=== PATIENT | female | born 1985 | race Caucasian/White ===

== ENCOUNTER 2019-06-16 14:50 | Outpatient (CLI) | payer OTHER, SELFPAY ==
--- NOTE | ~2019-06-16 | XR_ITS ---
XR foot LT min 3V 06/16/2019 15:08 INDICATION: Left foot pain laterally for one week PROCEDURE: 4 views left foot COMPARISON: No prior studies for comparison. FINDINGS: Fracture, dislocation or subluxation is not identified. Lisfranc joint intact. The soft tis sues appear within normal limits. No foreign bodies are identified. IMPRESSION: 1: NO ACUTE BONE OR JOINT ABNORMALITY IDENTIFIED. Reviewed, dictated and finalized at location A. 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
== END 2019-06-16 14:51 | disposition home or self-care (01) ==
LOC: ANHIMG 14:55
PROVIDERS: PCP Registered Nurse; Visit Provider Registered Nurse
DX: M79.672 Pain in left foot (principal)
CPT/HCPCS: 73630

== ENCOUNTER 2019-07-10 00:44 | Day surgery (SDC) | payer OTHER, SELFPAY ==
[2019-07-04 15:05] VITALS: BMI 20.7
[2019-07-10 07:29] VITALS: BP 110/74; PULSE 63; RESP 14; TEMP 36.6; O2SAT 100
[2019-07-10] MEDS: LACTATED RINGERS 1,000 ML 150 ML IV CONT (07:34)
--- NOTE | 2019-07-10 08:06 | P.PNAN_ITS ---
Anes - Initial Pre Proc Eval Procedure: Operation Date: 07/10/19 08:30 Proposed Procedures p Esophagogastroduodenoscopy - Enrique Matias MD Date/Time: 07/10/19 08:06 Surgeon: Enrique Matias MD Pre Op Diagnosis: GERD Patient Data Age: 33 Gender: F Height: 5 ft 7 in Weight: 59.5 kg Last Vital Signs Temp 36.6 C 07/10/19 07:29 Pulse 63 07/10/19 07:29 Resp 14 07/10/19 07:29 BP 110/74 07/10/19 07:29 Pulse Ox 100 07/10/19 07:29 Allergies Allergy/AdvReac Type Severity Reaction Status Date / Time No Known Allergies Allergy Verified 07/10/19 07:24 Home Medications Medication Instructions Recorded Confirmed Type dextroamphetamine-amphetamine 10 mg PO DAILY 07/04/19 07/10/19 History omeprazole 20 mg PO DAILY 07/04/19 07/10/19 History sertraline 50 mg DAILY 07/04/19 07/10/19 History Patient hx anesthesia problems: none Family hx anesthesia problems: none [facility] Past Medical History Medical History Anxiety PTSD (post-traumatic stress disorder) Anes - Eval Final PreProcedure Day of Procedure 07/10/19 08:06 Patient weight: normal Heart: regular rate and rhythm Lungs: clear to auscultation Airway: Mallampati scale class 1 Neurological: alert and oriented Last oral intake: >/= 8 hours ASA classification: II Emergent: no Anesthetic plan: proceed Anesthesia type and monitoring: general GIVS and standard monitoring Informed Consent: The patient's anesthetic plan and its attendant risks and benefits were discussed with the patient/family/POA. Questions were solicited and answers provided to the satisfaction of the patient/family/POA.
[2019-07-10 08:50] VITALS: BP 102/68; PULSE 47; RESP 14; O2SAT 100
[2019-07-10 09:00] VITALS: BP 114/82; PULSE 45; RESP 16; O2SAT 100
[2019-07-10 09:10] VITALS: BP 106/72; PULSE 46; RESP 16; O2SAT 100
--- NOTE | 2019-07-13 14:26 | WPDGICN ---
Assessment and Plan Additional Plan This is a 33-year-old white female patient seen in evaluation at the request of nurse practitioner Patricia Bose. Patient complains a long-term history of heartburn. In acid reflux. She notices reflux and regurgitation typically in the evening on reclining. This will typically occurs shortly after reclining in the evening at bedtime. Patient often will notice symptoms in the morning as well. She denies any bleeding. She denies any difficulty swallowing. She has tried proton pump inhibitors briefly over the last 2 months with some improvement in symptoms. She denies any weight loss. Past medical history is significant for depression. Anxiety. PTSD. Current medications include omeprazole, sertraline, Adderall, NKDA Physical exam reveals her to be alert. Vital signs stable. HEENT exam unremarkable. Lungs are clear to auscultation and percussion. Heart is without murmur or extra sounds. Abdominal exam bowel sounds are present soft nontender with no organomegaly. Digital external rectal exam unremarkable. Impression 1. Chronic GE reflux disease. Nocturnal regurgitation appears to be primary symptom associated with heartburn. Plan is for anti-reflux measures. Elevating head of bed at night. No late snacks. Proton pump inhibitor is advised now on likely to be required long-term. Because of long-term symptoms an EGD will be required. Further recommendations may be given after endoscopy. Date of original consultation 06/27/2019. GI Consult Note Consult date/time: 07/13/19 14:26 HPI: Marielena Dennison is a 33 year old female [facility] Past Medical History Medical History Anxiety PTSD (post-traumatic stress disorder) Meds Home Medications and Allergies Home Medications Medication Instructions Recorded Confirmed Type dextroamphetamine-amphetamine 10 mg PO DAILY 07/04/19 07/10/19 History omeprazole 20 mg PO DAILY 07/04/19 07/10/19 History sertraline 50 mg DAILY 07/04/19 07/10/19 History Allergies Allergy/AdvReac Type Severity Reaction Status Date / Time No Known Allergies Allergy Verified 07/10/19 07:24
== END 2019-07-10 09:35 | disposition home or self-care (01) ==
PROVIDERS: PCP Registered Nurse; Visit Provider Internal Medicine Gastroenterology
PROC: 0DJ08ZZ Inspection of Upper Intestinal Tract, Via Natural or Artificial Opening Endoscopic (ICD-10-PCS; CPT 43235; principal; 2019-07-10 08:30)
DX: K21.9 Gastro-esophageal reflux disease without esophagitis (principal); R11.10 Vomiting, unspecified; F43.10 Post-traumatic stress disorder, unspecified; F41.8 Other specified anxiety disorders
CPT/HCPCS: 43239; 87081; J2704; J7120

== ENCOUNTER 2019-08-18 09:16 | Outpatient (CLI) | payer OTHER, SELFPAY ==
[2019-08-18 09:34] LABS: Basophils Percent Auto 0.3 % (0.2-1.2); Eosinophils Percent Auto 0.1 % (0-4.4); Hematocrit 37.7 % (37.0-47.0); Hemoglobin 12.4 g/dL (12.0-15.0); Immature Granulocyte Absolute 0.02 K/mm3 (0.00-0.031); Immature Granulocyte Percent A 0.3 % (0-0.5); Lymphocytes Absolute Auto 1.15 K/mm3 (0.9-3.2); Lymphocytes Percent Auto 15.1 % (18.3-44.2); Mean Corpuscular HGB Conc 32.9 g/dl (32-36); Mean Corpuscular Hemoglobin 31.4 pg (26-34); Mean Corpuscular Volume 95.4 fl (80-100); Mean Platelet Volume 12.9 fl (7.4-10.4); Monocytes Absolute Auto 0.5 K/mm3 (0.1-0.6); Monocytes Percent Auto 6.5 % (2.6-8.5); Neutrophils Absolute Auto 5.9 K/mm3 (1.3-6.7); Neutrophils Percent Auto 77.7 % (45.5-73.1); Platelet Count Result 116 k/mm3 (150-375); Red Blood Count 3.95 M/mm3 (4.2-5.4); Red Cell Distribution Width 12.1 % (11.5-14.5); White Blood Count 7.6 K/mm3 (4.5-10.0)
[2019-08-18 09:47] LABS: Alanine Aminotransferase 13 U/L (4-35); Albumin Level 4.3 g/dL (3.5-5.1); Alkaline Phosphatase 56 U/L (38-126); Aspartate Amino Transferase 20 U/L (14-36); Bilirubin,Total 1.4 mg/dL (0.2-1.3); Blood Urea Nitrogen 14 mg/dL (7-17); Calcium 8.7 mg/dL (8.4-10.2); Carbon Dioxide 25 mmol/L (22-30); Chloride 103 mmol/L (98-107); Estimated Glomerular Filt Rate > 60; Glucose 110 mg/dL (65-105); Potassium 4.1 mmol/L (3.4-5.0); Sodium 135 mmol/L (137-145)
[2019-08-18 10:31] LABS: Free T4 Free Thyroxine 0.87 ng/mL (0.78-2.19)
== END 2019-08-18 09:17 | disposition home or self-care (01) ==
PROVIDERS: PCP Registered Nurse; Visit Provider Registered Nurse
DX: R61 Generalized hyperhidrosis (principal)
CPT/HCPCS: 36415; 80053; 84439; 84443; 85025

== ENCOUNTER 2020-01-11 06:35 | Outpatient (CLI) | payer OTHER, SELFPAY ==
--- NOTE | ~2020-01-11 | MR_ITS ---
EXAMINATION: MR knee LT wo con DATE: 01/11/2020 07:39 INDICATION: Medial meniscal tear. Left knee pain. TECHNIQUE: Magnetic resonance imaging (MRI) of the left knee was performed without intravenous contra st. Sequences included coronal PD-weighted FSE, coronal PD-weighted FS FSE, sagittal T2-weighted FSE , sagittal PD-weighted FS FSE and axial PD weighted fat saturated FSE. COMPARISON: None. FINDINGS: Medial compartment: Medial meniscus is normal. Articular cartilage is normal. Lateral compartment: Lateral meniscus is normal. There is a partial-thickness chondral fissure along the posterior margin of the lateral tibial plateau underlying the peripheral third of the posterior horn of the lateral me niscus. Patellofemoral compartment: Mild chondral surface irregularity along the inferior half of the patellar apical ridge. Chondral swe lling and likely associated superficial fibrillation with poorly defined chondral surface at the medi al facet. Mild chondral fissuring at the inferomedial aspect of the medial trochlea. Ligaments and tendons: Anterior and posterior cruciate ligaments are normal. The medial collateral ligament and fibular beatrice ateral ligament complex are normal. The extensor mechanism is normal. The visualized medial and later al hamstring tendons as well as the iliotibial band are normal. Fluid: Physiologic amount of fluid in the joint space. No loose osteochondral bodies identified. Moderate-si zed Bragg's cyst. There is also small to moderate amount of fluid tracking inferiorly along the popli teal recess. Osseous/other: Normal marrow signal. No fracture or abnormal marrow replacing process. IMPRESSION: 1. Relatively preserved cartilage thickness but with small regions of chondral fissuring in the webster lofemoral compartment and along the posterior rim of the lateral tibial plateau. 2. Normal menisci and stabilizing ligaments. 3. Moderate-sized Bragg's cyst. Reviewed, dictated and finalized at location A. IMPRESSION: 1. Relatively preserved cartilage thickness but with small regions of chondral fissuring in the patellofemoral compartment and along the posterior rim of the lateral tibial plateau. 2. Normal menisci and stabilizing ligaments. 3. Moderate-sized Bragg's cyst.
== END 2020-01-11 06:36 | disposition home or self-care (01) ==
PROVIDERS: PCP Registered Nurse; Visit Provider Orthopaedic Surgery
DX: S83.242A Other tear of medial meniscus, current injury, left knee, initial encounter (principal); M71.22 Synovial cyst of popliteal space [Baker], left knee
CPT/HCPCS: 73721

== ENCOUNTER 2020-02-15 18:07 | Emergency (ER) | payer OTHER, SELFPAY ==
--- NOTE | ~2020-02-15 | CT_ITS ---
EXAMINATION: CTA brain carotid EXAM DATE: 02/15/2020 19:42 INDICATION: Headache. TECHNIQUE: Noncontrast head CT. Spiral CTA of the carotid arteries was performed with intravenous i njection 100 cc of Omnipaque 350. Axial, coronal, sagittal reformatted images reviewed. Additional r eformatted images created on dedicated 3-D workstation. NASCET comparable standard used to assess th e degree of arterial stenosis. Spiral CT angiogram cerebral arteries performed with the same intrave nous injection of contrast. Source images of the brain CTA transferred to dedicated workstation for 3 -D rotational image creation. Coronal, sagittal maximum intensity pixel images also reviewed. The d ose-length product (DLP) for this examination was 1890.58 mGy-cm. The exposure was tailored accordi ng to patient size, and iterative reconstruction (ASIR) was used as additional dose reduction techniq ue. There is no prior study for comparison. FINDINGS: There is 0% carotid stenosis bilaterally, no focal plaque. The left vertebral artery is dom inant. There is no carotid or vertebral basilar arterial dissection or fibromuscular dysplasia. Ther e are no cerebral artery aneurysms. There is symmetric cerebral artery arborization. The sagittal, tr ansverse and sigmoid sinuses enhance normally, no venous sinus thrombosis. Internal cerebral veins al so enhance normally. There is left-sided posterior communicating artery dominant posterior cerebral artery. There is no acute intraparenchymal hemorrhage. No evidence of intraparenchymal brain mass lesion. N o evidence of acute infarction. There is no mass effect or midline shift. There is no obstructive hyd rocephalus suspected. There are no extra-axial collections. There are no calvarial acute fractures. IMPRESSION: Normal carotid arteries. Normal exam. Reviewed, dictated and finalized at location A.
[2020-02-15 18:11] VITALS: BP 138/89; PULSE 58; RESP 16; TEMP 36.4; O2SAT 100
--- NOTE | 2020-02-15 18:12 | ED.GENADULT ---
HPI - General Adult General Chief complaint: Headache Stated complaint: HEADACHE Time Seen by Provider: 02/15/20 18:10 Source: patient Mode of arrival: ambulatory Limitations: no limitations History of Present Illness HPI narrative: Patient is a 34-year-old female who presents to emergency department for evaluation of left posterior ocular temporal headache has been present for 4 days denies other symptoms or complaints has tried [id number] medications with no improvement patient does note light noise sensitivity patient denies any fever chills nausea vomiting or other complaints and on arrival is in the room in no distress but appears uncomfortable Related Data Home Medications Medication Instructions Recorded Confirmed dextroamphetamine-amphetamine 10 mg PO DAILY 07/04/19 07/10/19 omeprazole 20 mg PO DAILY 07/04/19 07/10/19 sertraline 50 mg DAILY 07/04/19 07/10/19 Allergies Allergy/AdvReac Type Severity Reaction Status Date / Time No Known Allergies Allergy Verified 02/15/20 18:11 Review of Systems Review of Systems: All systems reviewed & are unremarkable except as noted in HPI and below PMFSH Past Medical History Medical History (Updated 02/15/20 @ 20:02 by Magdaleno Hernández PA-C) Acute medial meniscus tear of left knee Anxiety Chondromalacia of left patellofemoral joint Depression GERD (gastroesophageal reflux disease) Peroneal tendinitis of left lower leg PTSD (post-traumatic stress disorder) Seasonal allergies Surgical History Surgical History History of breast surgery Family History Family History Other Arthritis Cancer Diabetes mellitus Heart disease Social History Social History Smoking status: Never smoker Alcohol intake: current Drinks per week: 7 Substance use: unknown 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 HEAD: Normocephalic, atraumatic. EYES: PERRLA and EOMI. ENT: Nares clear, no rhinorrhea or epistaxis. Mucous membranes moist. CHEST: Clear to auscultation. No respiratory distress. No wheezes rales or rhonchi HEART: Regular rate and rhythm. No murmur heard. Normal peripheral pulses. ABDOMEN: Soft, nontender, nondistended EXTREMITIES: Normal range of motion. No edema. SKIN: Warm, dry, no rash. NEURO: No focal deficits. Alert and oriented x3. Normal speech and gait. Cranial nerves II through XII grossly intact PSYCH: Normal mood and affect. Course Course Emergency Course: Patient in the room with improvement Vital Signs Vital signs: Vital Signs Temperature 97.6 F 02/15/20 18:11 Pulse Rate 58 L 02/15/20 18:11 Respiratory Rate 16 02/15/20 18:11 Blood Pressure 138/89 02/15/20 18:11 Pulse Oximetry 100 02/15/20 18:11 Temperature 97.6 F 02/15/20 18:11 Pulse Rate 58 L 02/15/20 18:11 Respiratory Rate 16 02/15/20 18:11 Blood Pressure 138/89 02/15/20 18:11 Pulse Oximetry 100 02/15/20 18:11 Medical Decision Making MDM Narrative Medical decision making narrative: Patients headache was not sudden or maximal in onset. There are o focal neurological deficits on exam. Subarachnoid hemorrhage is felt to be unlikey at this time. There is no history of fever, and neck is supple without meningismus, making meningitis unlikely. No traumatic history or signs of trauma on exam. No risk factors for CVA, risk factors reviewed. NO ocular signs on exam and in history to suggest acute glaucoma. Patients headache is felt to be a reasonable candidate for outpatient evaluation Vital Signs Vital Signs: Vital Signs Temperature 97.6 F 02/15/20 18:11 Pulse Rate 58 L 02/15/20 18:11 Resp
[2020-02-15] MEDS: METOCLOPRAMIDE HCL INJ 10 MG/2 ML VIAL IV PUSH (18:17)
[2020-02-15] MEDS: diphenhydrAMINE HCl INJ 50 MG/ML VIAL 25 MG IV PUSH (18:17)
[2020-02-15] MEDS: SODIUM CHLORIDE 0.9% IV 1,000 ML 999 ML IV CONT (18:17)
[2020-02-15] MEDS: FAMOTIDINE 20 MG/2 ML VIAL IV PUSH (18:17)
[2020-02-15] MEDS: KETOROLAC 30 MG/ML VIAL (*BKC) IV PUSH (18:17)
[2020-02-15 19:09] LABS: Basophils Percent Auto 0.3 % (0.2-1.2); Eosinophils Absolute Auto 0.1 K/mm3 (0-0.3); Eosinophils Percent Auto 0.8 % (0-4.4); Hematocrit 38.7 % (37.0-47.0); Hemoglobin 12.6 g/dL (12.0-15.0); Immature Granulocyte Absolute 0.01 K/mm3 (0.00-0.031); Immature Granulocyte Percent A 0.2 % (0-0.5); Lymphocytes Absolute Auto 1.97 K/mm3 (0.9-3.2); Lymphocytes Percent Auto 30.8 % (18.3-44.2); Mean Corpuscular HGB Conc 32.6 g/dl (32-36); Mean Corpuscular Hemoglobin 31.7 pg (26-34); Mean Corpuscular Volume 97.2 fl (80-100); Mean Platelet Volume 12.2 fl (7.4-10.4); Monocytes Absolute Auto 0.5 K/mm3 (0.1-0.6); Neutrophils Absolute Auto 3.9 K/mm3 (1.3-6.7); Neutrophils Percent Auto 60.9 % (45.5-73.1); Platelet Count Result 124 k/mm3 (150-375); Red Blood Count 3.98 M/mm3 (4.2-5.4); Red Cell Distribution Width 12.3 % (11.5-14.5); White Blood Count 6.4 K/mm3 (4.5-10.0)
[2020-02-15 19:21] LABS: Anion Gap 6 mmol/L (8-16); Blood Urea Nitrogen 12 mg/dL (7-17); Calcium 8.8 mg/dL (8.4-10.2); Carbon Dioxide 28 mmol/L (22-30); Chloride 105 mmol/L (98-107); Estimated CRCL calculation 104 ml/min; Estimated Glomerular Filt Rate > 60; Glucose 90 mg/dL (65-105); Potassium 4.1 mmol/L (3.4-5.0); Sodium 139 mmol/L (137-145)
[2020-02-15] MEDS: LORazepam INJ (*CRX) 2 MG/ML VIAL 1 MG IV PUSH (19:22)
== END 2020-02-15 20:12 | disposition home or self-care (01) ==
PROVIDERS: Emergency Medicine Emergency Medical Services; Emergency Provider Emergency Medicine; PCP Registered Nurse
DX: R51.9 Headache, unspecified (principal); F32.9 Major depressive disorder, single episode, unspecified; F41.9 Anxiety disorder, unspecified; K21.9 Gastro-esophageal reflux disease without esophagitis; F43.10 Post-traumatic stress disorder, unspecified
CPT/HCPCS: 36415; 70496; 70498; 80048; 85025; 96361; 96374; 96375; 99284; J0131; J1200; J1885; J2060; J2765; J7030; Q9967

== ENCOUNTER 2020-04-14 09:23 | Outpatient (CLI) | payer OTHER, SELFPAY ==
--- NOTE | ~2020-04-14 | US_ITS ---
EXAMINATION: US knee asp inj w image LT DATE: 04/14/2020 10:31 INDICATION: Synovial cyst of popliteal space. TECHNIQUE: The procedure including the risks was discussed with the patient. Risks discussed included bleeding and infection. The patient understood the risks and agreed to proceed. The skin overlying t he left popliteal space was prepped and draped in usual sterile fashion. Anesthetic was administered with 1% lidocaine subcutaneously. An 18 gauge needle was then used to aspirate a Bragg's cyst under continuous sonographic guidance. Next, 1 mL 80 mg/mL Depo-Medrol was injected under ultrasound tahir nce. The entry site was cleaned and dressed. There were no immediate complications. FINDINGS: Ultrasound images demonstrate the needle in the left-sided Bragg's cyst. IMPRESSION: 1. Ultrasound-guided aspiration of a left-sided Bragg's cyst yielding 3 mL clear, yellow fluid. Ultra sound-guided injection of the Bragg's cyst with steroid. Reviewed, dictated and finalized at location A. 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 Ultrasound-guided aspiration of a left-sided Bragg's cyst yielding 3 mL fabiola r, yellow fluid. Ultrasound-guided injection of the Bragg's cyst with steroid.
== END 2020-04-14 09:24 | disposition home or self-care (01) ==
PROVIDERS: PCP Registered Nurse; Visit Provider Orthopaedic Surgery
DX: M71.22 Synovial cyst of popliteal space [Baker], left knee (principal)
CPT/HCPCS: 20611; J1040

== ENCOUNTER 2020-09-12 07:22 | Outpatient (CLI) | payer OTHER, SELFPAY ==
[2020-09-12 08:02] LABS: Basophils Percent Auto 0.4 % (0.2-1.2); Eosinophils Percent Auto 0.4 % (0-4.4); Hematocrit 38.9 % (37.0-47.0); Hemoglobin 12.6 g/dL (12.0-15.0); Immature Granulocyte Absolute 0.03 K/mm3 (0.00-0.031); Immature Granulocyte Percent A 0.5 % (0-0.5); Lymphocytes Absolute Auto 1.35 K/mm3 (0.9-3.2); Mean Corpuscular HGB Conc 32.4 g/dl (32-36); Mean Corpuscular Hemoglobin 31.4 pg (26-34); Monocytes Absolute Auto 0.5 K/mm3 (0.1-0.6); Monocytes Percent Auto 8.7 % (2.6-8.5); Neutrophils Absolute Auto 3.7 K/mm3 (1.3-6.7); Platelet Count Result 119 k/mm3 (150-375); Red Blood Count 4.01 M/mm3 (4.2-5.4); Red Cell Distribution Width 12.6 % (11.5-14.5); White Blood Count 5.6 K/mm3 (4.5-10.0)
[2020-09-12 08:14] LABS: Add Urine Microscopic? YES; Appearance Urine Clear (Clear); Bacteria Urine Trace /hpf; Bilirubin Urine Negative (Negative); Blood Urine Negative (Negative); Color Urine Yellow (Yellow); Glucose Urine UA Negative (Negative); Ketones Urine Negative (Negative); Leukocyte Esterase Ur Trace LEU/UL (Negative); Mucus Urine Rare /lpf; Nitrate Urine Negative (Negative); Protein Urine Negative (Negative); RBC Urine 0-2 /hpf (0-2); Squamous Epithelial Cell Urine Many /hpf (Few); Urobilinogen Urine Negative mg/dL (<2.0); WBC Urine 0-3 /hpf
[2020-09-12 08:15] LABS: Alanine Aminotransferase 19 U/L (4-35); Albumin Level 4.2 g/dL (3.5-5.1); Alkaline Phosphatase 46 U/L (38-126); Anion Gap 4 mmol/L (8-16); Aspartate Amino Transferase 26 U/L (14-36); Bilirubin,Total 0.8 mg/dL (0.2-1.3); Blood Urea Nitrogen 15 mg/dL (7-17); Calcium 9.1 mg/dL (8.4-10.2); Carbon Dioxide 28 mmol/L (22-30); Chloride 105 mmol/L (98-107); Cholesterol 202 mg/dL (0-200); Estimated Glomerular Filt Rate > 60; Glucose 95 mg/dL (65-105); HDL Direct 89 mg/dL; Potassium 4.1 mmol/L (3.4-5.0); Sodium 137 mmol/L (137-145); Triglycerides 69 mg/dL (<150)
[2020-09-12 08:27] LABS: LDL Cholesterol Direct 95 mg/dL
[2020-09-12 08:51] LABS: Thyroid Stimulating Hormone 0.947 uIU/mL (0.465-4.680)
== END 2020-09-12 07:23 | disposition home or self-care (01) ==
PROVIDERS: PCP Registered Nurse; Visit Provider Registered Nurse
DX: Z00.00 Encounter for general adult medical examination without abnormal findings (principal)
CPT/HCPCS: 36415; 80053; 80061; 81001; 84439; 84443; 85025

== ENCOUNTER 2021-01-01 02:08 | Day surgery (SDC) | payer OTHER, SELFPAY ==
--- NOTE | 2020-12-31 13:16 | PM.IMHP ---
H&P: HPI History of Present Illness Date/Time: 12/31/20 13:16 Chief Complaint: Left knee pain Narrative: 35-year-old with severe anterior left knee pain radiates to the back of the knee. MRI shows medial meniscus tear and inflammatory changes. She has failed previous cortisone injections, physical therapy, bracing and activity modifications. Presents now for operative treatment. Review of Systems Constitutional: Constitutional: Denies fever(s) Eyes: Eyes: Denies blurry vision ENT: Reports Normal hearing present Cardiovascular: Cardiovascular: Denies chest pain and Denies dyspnea Respiratory: Respiratory: Denies dyspnea and Denies wheezing Gastrointestinal: Gastrointestinal: Denies abdominal pain Genitourinary: Genitourinary: Denies urinary urgency Musculoskeletal: Musculoskeletal: Reports as per HPI and Denies numbness Integumentary/Breasts: Skin/Breast: Denies changing lesions and Denies sores Neurologic: Reports Normal hearing present, Denies behavioral changes, Denies confusion, Denies numbness and Denies convulsions Psychiatric: Psychiatric: Denies behavioral changes, Denies confusion and Denies hallucinations Endocrine: Endocrine: Denies heat intolerance Hematologic/Lymphatic: Hematologic/Lymphatic: Denies easy bleeding Allergic/Immunologic: Allergic/Immunologic: Denies wheezing PMFSH Past Medical History Medical History Acute medial meniscus tear of left knee Anxiety Chondromalacia of left patellofemoral joint Depression GERD (gastroesophageal reflux disease) Peroneal tendinitis of left lower leg PTSD (post-traumatic stress disorder) Seasonal allergies Synovial cyst of popliteal space [Bragg], left knee Surgical History Surgical History History of breast surgery Family History Family History Other Arthritis Cancer Diabetes mellitus Heart disease Social History Social History Smoking status: Never smoker Alcohol intake: current Drinks per week: 7 Alcohol use details: 5-7 drinks per week Substance use: unknown 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[employer] Gender identity (if verbalized by the patient): Female Spiritual care concerns: No Meds Home Medications and Allergies Home Medications Medication Instructions Recorded Confirmed Type dextroamphetamine-amphetamine 10 mg PO DAILY 07/04/19 12/25/20 History omeprazole 20 mg PO DAILY 07/04/19 12/25/20 History sertraline 50 mg DAILY 07/04/19 12/25/20 History Allergies Allergy/AdvReac Type Severity Reaction Status Date / Time adhesive tape Allergy Intermediate Rash Verified 12/25/20 14:37 Exam Const: Other: Constitutional General: No confusion Orientation/consciousness: No confusion HENMT Head: normal to inspection, normocephalic and atraumatic Eyes Conjunctivae: Yes conjunctivae normal Sclera: sclerae normal Neck Neck: Yes supple and No tender Chest Chest palpation & inspection: normal inspection of the chest Resp Effort & Inspection: normal respiratory effort and no audible wheezes Cardio Rate: Yes regular rate Rhythm: regular rhythm General Exam: Yes deferred Skin General skin exam: no rashes or lesions noted Neuro General: No confusion Extrem General: Yes capillary refill normal Right upper extremity: normal to inspection Left upper extremity: normal to inspection Right lower extremity: normal to inspection, hip/thigh Details: normal to inspection, ankle Details: Negative for tenderness and swelling and foot Details: normal capillary refill, toes with normal ROM and vascular exam Details: dorsalis pedis pulse present and normal capillary refill Left lower extremity: hip/thigh Details: normal to inspection, knee Details: normal to inspection,
[2021-01-01] VITALS (10 sets, daily range): BP systolic 104–127; BP diastolic 66–86; PULSE 56–76; RESP 7–16; TEMP 36.2–36.5; O2SAT 96–100
[2021-01-01] MEDS: ACETAMINOPHEN 500 MG TABLET 1000 MG PO (07:05)
--- NOTE | 2021-01-01 07:12 | WPDHPUPDATE1 ---
History and Physical Update Update Date/Time: 01/01/21 07:12 History and Physical has been reviewed, including an updated exam of the patient. There are NO changes in the patient's condition. Risks, benefits, and alternatives have been discussed and questions answered. Patient agrees to proceed with procedure.
[2021-01-01] MEDS: LACTATED RINGERS 1,000 ML 30 ML IV CONT ×2 (07:17→09:33)
[2021-01-01] MEDS: KETOROLAC 15 MG/ML VIAL (*BKC) IV PUSH (07:23)
--- NOTE | 2021-01-01 07:35 | WPDANESEPPF ---
Anes - Initial Pre Proc Eval Procedure: Operation Date: 01/01/21 08:30 Proposed Procedures p Left Knee Arthroscopy, Debride Meniscus, Synovectomy, Chondroplasty, Lateral Release, Proceed As Indicated - Benny Ritter MD Date/Time: 01/01/21 07:35 Surgeon: Benny Ritter MD Pre Op Diagnosis: chondromylasia left knee, left synovitis Patient Data Age: 35 Gender: F Height: 1.7 m Weight: 58.5 kg Last Vital Signs Temp 36.5 C 01/01/21 06:42 Pulse 61 01/01/21 06:42 Resp 16 01/01/21 06:42 BP 124/79 01/01/21 06:42 Pulse Ox 100 01/01/21 06:42 Allergies Allergy/AdvReac Type Severity Reaction Status Date / Time adhesive tape Allergy Intermediate Rash Verified 01/01/21 06:57 Home Medications Medication Instructions Recorded Confirmed Type dextroamphetamine-amphetamine 10 mg PO DAILY 07/04/19 01/01/21 History omeprazole 20 mg PO DAILY 07/04/19 01/01/21 History sertraline 50 mg DAILY 07/04/19 01/01/21 History Patient hx anesthesia problems: none Family hx anesthesia problems: none PMFSH Past Medical History Medical History Acute medial meniscus tear of left knee Anxiety Chondromalacia of left patellofemoral joint Depression GERD (gastroesophageal reflux disease) Peroneal tendinitis of left lower leg PTSD (post-traumatic stress disorder) Seasonal allergies Synovial cyst of popliteal space [Bragg], left knee Surgical History Surgical History History of breast surgery Family History Family History Other Arthritis Cancer Diabetes mellitus Heart disease Social History Social History Smoking status: Never smoker Alcohol intake: current Drinks per week: 7 Alcohol use details: 5-7 drinks per week Substance use: unknown Living arrangements: with family 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[employer] Gender identity (if verbalized by the patient): Female Spiritual care concerns: No Anes - Eval Final PreProcedure Day of Procedure 01/01/21 07:35 Patient weight: normal Heart: regular rate and rhythm Lungs: clear to auscultation Airway: Mallampati scale class 1 Neurological: alert and oriented Last oral intake: >/= 8 hours ASA classification: II Emergent: no Anesthetic plan: proceed Anesthesia type and monitoring: general LMA and standard monitoring Informed Consent: The patient's anesthetic plan and its attendant risks and benefits were discussed with the patient/family/POA. Questions were solicited and answers provided to the satisfaction of the patient/family/POA.
[2021-01-01] MEDS: ceFAZolin 2 GM/D5W 50 ML 2 GM/50 ML BAG IVPB (08:23)
[2021-01-01] MEDS: BUPIVACAINE/EPINEPHRINE 0.5% 30 ML VIAL INFILTRATE (09:28)
--- NOTE | 2021-01-01 09:46 | W.PM.PROC2 ---
Procedure Note - Detailed Date of Procedure 01/01/21 Pre-op Diagnosis Chondromalacia patellofemoral left knee, left synovitis, medial meniscus tear Post-op Diagnosis other (Left knee extensive synovitis, hypertrophic medial plica, medial meniscus tear, chondromalacia) Procedure Performed Left knee arthroscopy with extensive synovectomy, partial medial meniscectomy, lateral release, chondroplasty Surgeon Benny Ritter MD Anesthesia general Indications 35-year-old woman with severe left knee pain unrelieved with cortisone injection, physical therapy, bracing. MRI demonstrates synovitis and medial meniscus tear. Presents now for operative treatment. Findings Left knee with extensive synovitis involving the anterior compartment medial lateral gutters. Hypertrophic anterior fat pad. Hypertrophic medial plica and lateral plica. Posterior horn medial meniscus tear involving 20% of the inner free edge, anterior horn medial meniscus tear involving 15% of the inner free edge. Medial femoral condyle lateral femoral condyle intact. ACL, PCL intact. Lateral meniscus intact. Grade 1 chondromalacia patellofemoral joint. Description of Procedure Informed consent given by patient. Operative extremity marked in preoperative holding area. Patient received intravenous antibiotics. Patient brought to operating room and underwent general anesthetic by anesthesia team. Positioned supine on operating room table. Left leg placed into a posterior thigh leg bland. Foot of the table dropped to 90? and right leg padded out of the field. Time-out performed confirming patient, site of surgery and plan. Left knee prepped and draped in usual sterile surgical fashion using ChloraPrep skin solution. Standard arthroscopic portals made by using a 11 blade knife for the anterior lateral portal 1st. Capsule penetrated bluntly. Camera and inflow started. The above operative findings noted. Intra-articular visualization used to position the anterior medial portal using 22 gauge spinal needle. A 11 blade knife used for the skin and blunt penetration of the capsule. 4.7 millimeter arthroscopic shaver introduced and partial medial meniscectomy of the loose and torn portion performed. Edge of meniscus completed with arthroscopic Wand. Arthroscopic Wand used to perform chondroplasty of the patellofemoral articulation. Shaver reintroduced and an extensive synovectomy performed of the anterior fat pad and extensive synovium as well as medial and lateral plica. Bleeding points coagulated with Wand. Arthroscopic wand then used to perform a lateral release. Good tracking of the patella with knee flexion ensured. Knee inspected, no loose pieces noted. 1 liter of irrigant infused and suction out. Arthroscopic cannulas removed. Skin closed with 4 nylon interrupted suture. Local anesthetic with 0.25% Marcaine. Sterile dressing applied. Patient awoken from anesthesia, extubated and taken to recovery room in stable condition. All sponge needle and instrument counts correct at the end of the case. Estimated Blood Loss 5 Tourniquet Time 0 Drains No Packing No Pathology none sent Complications None Condition stable Disposition PACU
[2021-01-01] MEDS: fentaNYL CITRATE INJ (*CRX) 100 MCG/2 ML VIAL 25 MCG IV PUSH (10:29)
== END 2021-01-01 11:51 | disposition home or self-care (01) ==
PROVIDERS: PCP Registered Nurse; Visit Provider Orthopaedic Surgery
PROC: (CPT 29870; principal; 2021-01-01 08:30)
DX: S83.242A Other tear of medial meniscus, current injury, left knee, initial encounter (principal); M22.42 Chondromalacia patellae, left knee; M65.862 Other synovitis and tenosynovitis, left lower leg; X58.XXXA Exposure to other specified factors, initial encounter; K21.9 Gastro-esophageal reflux disease without esophagitis; F41.8 Other specified anxiety disorders; F43.10 Post-traumatic stress disorder, unspecified
CPT/HCPCS: 29881; 29873; 29876; A9270; J0690; J1885; J2250; J2270; J3010; J7120

== ENCOUNTER 2021-01-09 02:42 | Emergency (ER) | payer OTHER, SELFPAY ==
[2021-01-09 02:49] VITALS: BP 105/62; PULSE 77; RESP 15; TEMP 36.5; O2SAT 100
--- NOTE | 2021-01-09 03:00 | ED.GENADULT ---
HPI - General Adult General Chief complaint: Extremity Injury, Lower Stated complaint: ?DVT Time Seen by Provider: 01/09/21 02:55 History of Present Illness HPI narrative: Patient is a 35-year-old female presents the emergency department with chief complaint of left knee pain. The patient reports that she had surgery on 826 and 9 9 on her knee the patient reports over the last 2 days the pain has been getting worse more in the posterior aspect of the left knee. The patient states the pain is worse with movement and improved with rest patient denies swelling in the calf or the thigh reports she has not been that mobile but states whenever she dorsiflexes her toes it causes the pain to worsen. The patient denies chest pain denies shortness of breath. Related Data Home Medications Medication Instructions Recorded Confirmed dextroamphetamine-amphetamine 10 mg PO DAILY 07/04/19 01/01/21 omeprazole 20 mg PO DAILY 07/04/19 01/01/21 sertraline 50 mg DAILY 07/04/19 01/01/21 Allergies Allergy/AdvReac Type Severity Reaction Status Date / Time adhesive tape Allergy Intermediate Rash Verified 01/09/21 03:00 Review of Systems Review of Systems: A 10 system review of systems was completed on the patient and is negative except for what is stated in the HPI. Nursing and ancillary documentation was reviewed. [facility] Past Medical History Medical History Acute medial meniscus tear of left knee Anxiety Chondromalacia of left patellofemoral joint Depression GERD (gastroesophageal reflux disease) Peroneal tendinitis of left lower leg PTSD (post-traumatic stress disorder) Seasonal allergies Synovial cyst of popliteal space [Bragg], left knee Surgical History Surgical History History of breast surgery Family History Family History Other Arthritis Cancer Diabetes mellitus Heart disease Social History Social History Smoking status: Never smoker Alcohol intake: current Drinks per week: 7 Alcohol use details: 5-7 drinks per week Substance use: unknown 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 Gender identity (if verbalized by the patient): Female Spiritual care concerns: No Exam Narrative: GENERAL: Well-appearing, well-nourished, and in no acute distress. HEAD: Normocephalic, atraumatic. EYES: PERRLA and EOMI. ENT: Nares clear, no rhinorrhea or epistaxis. Mucous membranes moist. NECK: Supple. CHEST: Clear to auscultation. No respiratory distress. HEART: Regular rate and rhythm. No murmur heard. Normal peripheral pulses. ABDOMEN: Soft, nontender, nondistended, normal active bowel sounds. EXTREMITIES: Normal range of motion. No edema. There is tenderness to palpation in the posterior aspect of the left knee SKIN: Warm, dry, no rash. NEURO: No focal deficits. Alert and oriented x3. PSYCH: Normal mood and affect. Course Vital Signs Vital signs: Vital Signs Temperature 36.5 C 01/09/21 02:49 Pulse Rate 77 01/09/21 02:49 Respiratory Rate 15 01/09/21 02:49 Blood Pressure 105/62 01/09/21 02:49 Pulse Oximetry 100 01/09/21 02:49 Temperature 36.5 C 01/09/21 02:49 Pulse Rate 77 01/09/21 02:49 Respiratory Rate 15 01/09/21 02:49 Blood Pressure 105/62 01/09/21 02:49 Pulse Oximetry 100 01/09/21 02:49 Medical Decision Making Vital Signs Vital Signs: Vital Signs Temperature 36.5 C 01/09/21 02:49 Pulse Rate 77 01/09/21 02:49 Respiratory Rate 15 01/09/21 02:49 Blood Pressure 105/62 01/09/21 02:49 Pulse Oximetry 100 01/09/21 02:49 Temperature 36.5 C 01/09/21 02:49 Pulse Rate 77 01/09/21 02:49 Respiratory Rate 15 01/09/21 02:49 Blood Pressure 105/62 01/09/21 02:49
[2021-01-09 03:09] LABS: Basophils Percent Auto 0.5 % (0.2-1.2); Eosinophils Percent Auto 0.5 % (0-4.4); Hematocrit 40.7 % (37.0-47.0); Hemoglobin 13.3 g/dL (12.0-15.0); Immature Granulocyte Absolute 0.02 K/mm3 (0.00-0.031); Immature Granulocyte Percent A 0.2 % (0-0.5); Lymphocytes Absolute Auto 1.74 K/mm3 (0.9-3.2); Lymphocytes Percent Auto 19.8 % (18.3-44.2); Mean Corpuscular HGB Conc 32.7 g/dl (32-36); Mean Corpuscular Volume 97.8 fl (80-100); Mean Platelet Volume 12.1 fl (7.4-10.4); Monocytes Absolute Auto 0.6 K/mm3 (0.1-0.6); Monocytes Percent Auto 6.9 % (2.6-8.5); Neutrophils Absolute Auto 6.4 K/mm3 (1.3-6.7); Neutrophils Percent Auto 72.1 % (45.5-73.1); Platelet Count Result 169 k/mm3 (150-375); Red Blood Count 4.16 M/mm3 (4.2-5.4); Red Cell Distribution Width 12.3 % (11.5-14.5); White Blood Count 8.8 K/mm3 (4.5-10.0)
[2021-01-09 03:20] LABS: Alanine Aminotransferase 16 U/L (4-35); Albumin Level 4.9 g/dL (3.5-5.1); Alkaline Phosphatase 50 U/L (38-126); Anion Gap 9 mmol/L (8-16); Aspartate Amino Transferase 22 U/L (14-36); Bilirubin,Total 1.1 mg/dL (0.2-1.3); Blood Urea Nitrogen 11 mg/dL (7-17); Calcium 9.8 mg/dL (8.4-10.2); Carbon Dioxide 28 mmol/L (22-30); Chloride 102 mmol/L (98-107); Estimated CRCL calculation 104 ml/min; Estimated Glomerular Filt Rate > 60; Glucose 114 mg/dL (65-110); Potassium 3.9 mmol/L (3.4-5.0); Sodium 139 mmol/L (137-145)
[2021-01-09 03:26] LABS: INR 0.9
[2021-01-09 03:27] LABS: Partial Thromboplastin Time 24.1 SECONDS (22.3-36.8)
[2021-01-09 03:29] LABS: D Dimer 0.33 ug/mL (<0.48)
== END 2021-01-09 03:37 | disposition home or self-care (01) ==
PROVIDERS: Emergency Provider Emergency Medicine; PCP Registered Nurse
DX: M79.605 Pain in left leg (principal); F41.9 Anxiety disorder, unspecified; F32.9 Major depressive disorder, single episode, unspecified; F43.10 Post-traumatic stress disorder, unspecified; Z98.890 Other specified postprocedural states
CPT/HCPCS: 36415; 80053; 85025; 85380; 85610; 85730; 99283

== ENCOUNTER 2021-01-09 07:29 | Outpatient (CLI) | payer OTHER, SELFPAY ==
--- NOTE | ~2021-01-09 | US_ITS ---
EXAMINATION: US venous doppler [facility] DATE: 01/09/2021 08:02 INDICATION: Left lower limb pain and swelling TECHNIQUE: Grayscale ultrasound images without and with compression and Doppler ultrasound images of the left lower extremity veins were obtained. COMPARISON: None. FINDINGS: The visualized portions of left common femoral vein, profunda (deep) femoral vein, femoral vein, popl iteal vein, peroneal veins, posterior tibial veins, gastrocnemius vein and greater saphenous vein out flow are patent. Small Bragg's cyst at the left popliteal fossa measuring 3.3 x 1.0 x 2.9 cm. IMPRESSION: 1. No deep venous thrombosis in the left lower limb. Reviewed, dictated and finalized at location A.
== END 2021-01-09 07:30 | disposition home or self-care (01) ==
PROVIDERS: PCP Registered Nurse; Referring Provider Orthopaedic Surgery; Visit Provider Registered Nurse
DX: M79.89 Other specified soft tissue disorders (principal)
CPT/HCPCS: 93971

== ENCOUNTER 2022-02-10 15:51 | Outpatient (CLI) | payer OTHER, SELFPAY ==
[2022-02-10 16:16] LABS: Basophils Percent Auto 0.4 % (0.2-1.2); Eosinophils Absolute Auto 0.1 K/mm3 (0-0.3); Eosinophils Percent Auto 0.7 % (0-4.4); Hematocrit 36.2 % (37.0-47.0); Hemoglobin 11.8 g/dL (12.0-15.0); Immature Granulocyte Absolute 0.02 K/mm3 (0.00-0.031); Immature Granulocyte Percent A 0.3 % (0-0.5); Lymphocytes Absolute Auto 1.84 K/mm3 (0.9-3.2); Lymphocytes Percent Auto 27.1 % (18.3-44.2); Mean Corpuscular HGB Conc 32.6 g/dl (32-36); Mean Platelet Volume 12.6 fl (7.4-10.4); Monocytes Absolute Auto 0.5 K/mm3 (0.1-0.6); Monocytes Percent Auto 7.6 % (2.6-8.5); Neutrophils Absolute Auto 4.3 K/mm3 (1.3-6.7); Neutrophils Percent Auto 63.9 % (45.5-73.1); Platelet Count Result 151 k/mm3 (150-375); Red Blood Count 3.81 M/mm3 (4.2-5.4); Red Cell Distribution Width 12.2 % (11.5-14.5); White Blood Count 6.8 K/mm3 (4.5-10.0)
[2022-02-10 16:31] LABS: Alanine Aminotransferase 17 U/L (6-35); Albumin Level 4.5 g/dL (3.5-5.1); Alkaline Phosphatase 59 U/L (38-126); Anion Gap 10 mmol/L (8-16); Aspartate Amino Transferase 19 U/L (14-36); Bilirubin,Total 1.2 mg/dL (0.2-1.3); Blood Urea Nitrogen 16 mg/dL (7-17); Calcium 8.8 mg/dL (8.4-10.2); Carbon Dioxide 25 mmol/L (22-30); Chloride 103 mmol/L (98-107); Cholesterol 156 mg/dL (0-200); Estimated Glomerular Filt Rate > 60; Glucose 82 mg/dL (65-110); HDL Direct 59 mg/dL; Potassium 4.1 mmol/L (3.4-5.0); Sodium 138 mmol/L (137-145); Triglycerides 117 mg/dL (<150)
[2022-02-10 16:50] LABS: LDL Cholesterol Direct 75 mg/dL
[2022-02-10 17:06] LABS: Add Urine Microscopic? YES; Appearance Urine Cloudy (Clear); Bacteria Urine Trace /hpf; Bilirubin Urine Negative (Negative); Blood Urine Negative (Negative); Color Urine Yellow (Yellow); Glucose Urine UA Negative (Negative); Ketones Urine Negative (Negative); Leukocyte Esterase Ur Negative LEU/UL (Negative); Mucus Urine Moderate /lpf; Nitrate Urine Negative (Negative); Protein Urine Negative (Negative); RBC Urine 0-2 /hpf (0-2); Specific Grav Ur 1.024 (1.001-1.035); Squamous Epithelial Cell Urine Many /hpf (Few); WBC Urine 0-3 /hpf
[2022-02-10 17:09] LABS: Thyroid Stimulating Hormone Reflex 0.734 uIU/mL (0.465-4.68)
[2022-02-10 17:45] LABS: Folic Acid 6.9 ng/mL (2.76->20)
== END 2022-02-10 15:52 | disposition home or self-care (01) ==
PROVIDERS: PCP Registered Nurse; Referring Provider Registered Nurse; Visit Provider Registered Nurse
DX: Z00.00 Encounter for general adult medical examination without abnormal findings (principal); Z68.21 Body mass index [BMI] 21.0-21.9, adult
CPT/HCPCS: 36415; 80053; 80061; 81001; 82607; 82746; 84443; 85025

== ENCOUNTER 2023-04-27 07:57 | Outpatient (CLI) | payer OTHER, SELFPAY ==
[2023-04-27 08:43] LABS: Basophils Percent Auto 0.5 % (0.2-1.2); Eosinophils Percent Auto 0.7 % (0-4.4); Hematocrit 40.8 % (37.0-47.0); Immature Granulocyte Absolute 0.04 K/mm3 (0.00-0.031); Immature Granulocyte Percent A 0.7 % (0-0.5); Lymphocytes Absolute Auto 2.04 K/mm3 (0.9-3.2); Lymphocytes Percent Auto 34.1 % (18.3-44.2); Mean Corpuscular HGB Conc 31.9 g/dl (32-36); Mean Corpuscular Hemoglobin 29.8 pg (26-34); Mean Corpuscular Volume 93.6 fl (80-100); Mean Platelet Volume 11.5 fl (7.4-10.4); Monocytes Absolute Auto 0.5 K/mm3 (0.1-0.6); Neutrophils Absolute Auto 3.3 K/mm3 (1.3-6.7); Platelet Count Result 263 k/mm3 (150-375); Red Blood Count 4.36 M/mm3 (4.2-5.4); Red Cell Distribution Width 12.5 % (11.5-14.5)
[2023-04-27 08:49] LABS: Appearance Urine Cloudy (Clear); Bacteria Urine 1+ /hpf; Bilirubin Urine Negative (Negative); Blood Urine Negative (Negative); Color Urine Dark Yellow (Yellow); Glucose Urine UA Negative (Negative); Ketones Urine Trace mg/dL (Negative); Leukocyte Esterase Ur Trace LEU/UL (Negative); Nitrate Urine Negative (Negative); Non Pathogenic Casts 0-2; Protein Urine Negative (Negative); RBC Urine 0-2 /hpf (0-2); Specific Grav Ur 1.024 (1.001-1.035); Squamous Epithelial Cell Urine Many /hpf (Few); WBC Urine 0-5 /hpf; pH Urine 5.5 (5.0-9.0)
[2023-04-27 08:55] LABS: Alanine Aminotransferase 17 U/L (6-35); Albumin Level 4.1 g/dL (3.5-5.1); Alkaline Phosphatase 64 U/L (38-126); Anion Gap 8 mmol/L (8-16); Aspartate Amino Transferase 23 U/L (14-36); Bilirubin,Total 1.2 mg/dL (0.2-1.3); Blood Urea Nitrogen 11 mg/dL (7-17); Calcium 9.3 mg/dL (8.4-10.2); Carbon Dioxide 26 mmol/L (22-30); Chloride 104 mmol/L (98-107); Cholesterol 173 mg/dL (0-200); Estimated Glomerular Filt Rate > 60; Glucose 97 mg/dL (65-110); HDL Direct 55 mg/dL; Potassium 4.4 mmol/L (3.4-5.0); Sodium 138 mmol/L (137-145); Triglycerides 90 mg/dL (<150)
[2023-04-27 09:05] LABS: LDL Cholesterol Direct 95 mg/dL
[2023-04-27 09:07] LABS: Add Urine Microscopic? YES
[2023-04-27 09:52] LABS: Thyroid Stimulating Hormone Reflex 0.755 uIU/mL (0.465-4.68)
== END 2023-04-27 07:58 | disposition home or self-care (01) ==
LOC: ANHLAB 07:59
PROVIDERS: PCP Registered Nurse; Visit Provider Registered Nurse
DX: Z00.00 Encounter for general adult medical examination without abnormal findings (principal); R53.83 Other fatigue; F51.01 Primary insomnia; Z68.23 Body mass index [BMI] 23.0-23.9, adult; K12.0 Recurrent oral aphthae
CPT/HCPCS: 36415; 80053; 80061; 81001; 82607; 84443; 85025

== ENCOUNTER 2023-12-29 13:12 | Outpatient (CLI) | payer OTHER, SELFPAY ==
[2023-12-29 15:02] LABS: Thyroid Stimulating Hormone 0.605 uIU/mL (0.465-4.680)
[2023-12-29 15:30] LABS: Free T4 Free Thyroxine 0.97 ng/mL (0.78-2.19)
== END 2023-12-29 13:13 | disposition home or self-care (01) ==
LOC: ANHLAB 13:15
PROVIDERS: PCP Registered Nurse; Visit Provider Registered Nurse
DX: R63.4 Abnormal weight loss (principal)
CPT/HCPCS: 36415; 84439; 84443

== ENCOUNTER 2024-03-24 19:34 | Emergency (ER) | payer OTHER, SELFPAY ==
[2024-03-24] VITALS (7 sets, daily range): BP systolic 119–125; BP diastolic 77–98; PULSE 69–81; RESP 15–21; TEMP 36.6; O2SAT 99–100
--- NOTE | ~2024-03-24 | XR_ITS ---
EXAMINATION: XR chest 1V portable Exam Date/Time: 03/24/2024 20:01 CNC OPERATOR PROGRAMMER HISTORY: SVT Comparison: 04/30/2015. RESULT: Lines, tubes, and devices: None. Lungs and pleura: Clear. Cardiomediastinal silhouette: Stable. Other: No acute osseous or upper abdominal finding. IMPRESSION: No acute cardiopulmonary process. Reviewed, dictated and finalized at location K. OPERATOR PROGRAMMER
--- NOTE | 2024-03-24 19:37 | ECG_ITS ---
Test Date: 2024-03-24 19:46:27 Measurements Intervals [place] Rate: 80 P: -31 WI: 139 QRS: 66 QRSD: 75 T: 63 QT: 352 QTc: 408 Interpretive Statements SINUS RHYTHM WITH OCCASIONAL SUPRAVENTRICULAR PREMATURE COMPLEXES BASELINE ARTIFACT- I, II, III, AVR, AVL, AVF, V1-V2 BORDERLINE ECG No previous ECG available for comparison Electronically Signed On 03-24-2024 21:57:07 TRUCK PACKER by Alfonso Aj D.O.
--- NOTE | 2024-03-24 19:51 | ED.ARRPALP ---
HPI - Arrhythmia/Palpitations General Chief Complaint: Arrhythmia/Palpitations Stated Complaint: svt Time Seen by Provider: 03/24/24 19:36 38-year-old female with no pertinent past cardiac history presenting to the emergency department a chief complaint of sudden onset palpitations and SVT on her wrist watch. 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 She felt a heaviness sensation and some mild dyspnea but no sharp chest pains, nauseousness, vomiting, back pain, abdominal pain. No history of cardiac disease, hypertension, hyperlipidemia, arrhythmias or previous episodes of SVT or any ventricular dysrhythmias. She does take dextroamphetamine for ADHD but no recent dosages today or any changes in her medications recently. No history of DVT or PE or any thromboembolic event. She is noted to be tachycardic with a narrow complex tachycardic rhythm in the 180s on palpation but this resolved spontaneously while being hooked up to the monitor worker and EKG leads. States that she felt a resolution of her palpitations and no longer feeling the chest discomfort shortness of breath. Presently asymptomatic. Related Data Home Medications Medication Instructions Recorded Confirmed dextroamphetamine-amphetamine ER 10 mg PO DAILY 07/04/19 02/07/24 10 mg 24hr capsule,extend release omeprazole 20 mg capsule,delayed 20 mg PO DAILY 07/04/19 02/07/24 release duloxetine 60 mg capsule,delayed 60 mg PO DAILY 08/17/22 02/07/24 release (Cymbalta) Allergies Allergy/AdvReac Type Severity Reaction Status Date / Time adhesive tape Allergy Intermediate Rash Verified 02/07/24 09:25 Review of Systems Review of Systems: As reviewed above in HPI [facility] Past Medical History Medical History Acute medial meniscus tear of left knee Anxiety Chondromalacia of left patellofemoral joint Depression Encounter for postoperative care GERD (gastroesophageal reflux disease) Peroneal tendinitis of left lower leg PTSD (post-traumatic stress disorder) Seasonal allergies Synovial cyst of popliteal space [Bragg], left knee Surgical History Surgical History History of breast surgery Family History Family History Other Arthritis Cancer Diabetes mellitus Heart disease Social History Social History Smoking status: Never smoker Alcohol intake: current Drinks per week: 7 Alcohol use details: 5-7 drinks per week Substance use: unknown Living arrangements: with family Occupation/Education: occupation 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 Mucous membranes moist. NECK: Supple. CHEST: [Clear to auscultation. No respiratory distress.] HEART: Tachycardic rate but regular rhythm in 2+ symmetric pulses. Warm and well-perfused extremities. Clear heart sounds. ABDOMEN: [Soft, nondistended], [nontender], [No rigidity or guarding] EXTREMITIES: Normal range of motion. [No edema.] SKIN: Warm, dry, no rash. NEURO: [No focal deficits]. Alert and oriented [x3.] PSYCH: [Normal mood and affect.] Course Vital Signs Vital signs: Vital Signs Temperature 36.6 C 03/24/24 19:55 Pulse Rate 81 03/24/24 19:55 Respiratory Rate 16 03/24/24 19:55 Blood Pressure 121/93 H 03/24/24 19:55 Pulse Oximetry 100 03/24/24 19:55 Oxygen Delivery Room Air 03/24/24 19:55 Temperature 36.6 C 03/24/24 19:55 Pulse Rate 76 03/24/24 22:41 Respiratory Rate 18 03/24/24 22:41 Blood Pressure 121/83 03/24/24 22:41 Pulse Oximetry 100 03/24/24 22:41 Oxygen Delivery Room Air 03/24/24 19:55 MDM - Arrhythmia/Palpitations MDM Narrative Medical decision making narrative: 38-year-old female with no pertinent past medical history presenting to the emergency room with a chief complaint of palpitations. She is found to be in suspected SVT with narrow complex tachycardia with regular rhythm. The dysrhythmia seem to have resolved itself without any intervention such as bearing down or any vagal maneuvers as she was being hooked up to the EKG machine and getting an IV established. She previously had chest discomfort and mild shortness of breath which have both also resolved in addition to the resolution of the tachycardia. Presently normal sinus on the rhythm. EKG was obtained as well as cardiac workup, electrolyte panel, test, BNP, CBC, CMP. Will monitor her in the emergency department for any recurrence while workup is underway. Given the resolution of the tachycardia without any interventions likely this is a proximal SVT with no ongoing cardiac event or damage present but we will assess with labs including troponin serially. Laboratory studies show no significant leukocytosis, anemia, platelet concerns. Coags within normal limits. Negative D-dimer. Electrolytes within normal limits, normal renal function panel, normal glucose, normal hepatic function panel, normal calcium. Negative D-dimer x2. Unremarkable BMP. Negative beta hCG. Chest x-ray interpreted by myself and also by Radiology. No pneumothorax, pneumonia, consolidations. No acute cardiopulmonary process per radiology read. Serial EKGs and serial troponins without any elevations or concerning arrhythmia or recurrence of SVT. Patient has been here for several hours in the emergency but without any recurrent or continued complaints. Remained in normal sinus rhythm here in the ED without any interventions for the SVT. Patient is stable for discharge at this time was given Cardiology outpatient follow-up instructions. Patient comfortable with discharge. Medical Records Attestation: I reviewed the patient's medical records. Lab Data Attestation: I reviewed the patient's lab results. 03/24/24 19:51 03/24/24 19:51 Labs: Lab Results 03/24/24 03/24/24 03/24/24 Range/Units 19:51 19:52 19:52 WBC 10.8 H (4.5-10.0) K/mm3 RBC 3.99 L (4.2-5.4) M/mm3 Hgb 12.8 (12.0-15.0) g/dL Hct 38.1 (37.0-47.0) % MCV 95.5 (80-100) fl MCH 32.1 (26-34) pg MCHC 33.6 (32-36) g/dl RDW 12.5 (11.5-14.5) % Plt Count 179 (150-375) k/mm3 MPV 12.6 H (7.4-10.4) fl Immature Gran % (Auto) 0.4 (0-0.5) % Neut % (Auto) 65.3 (45.5-73.1) % Lymph % (Auto) 25.9 (18.3-44.2) % [place] % (Auto) 7.9 (2.6-8.5) % Eos % (Auto) 0.2 (0-4.4) % Baso % (Auto) 0.3 (0.2-1.2) % Lymph # (Auto) 2.79 (0.9-3.2) K/mm3 [place] # (Auto) 0.9 H (0.1-0.6) K/mm3 Eos # (Auto) 0.0 (0-0.3) K/mm3 Baso # (Auto) 0.0 (0.0-0.1) K/mm3 Abs Immat Gran (auto) 0.04 H (0.00-0.031) K/mm3 Absolute Neuts (auto) 7.0 H (1.3-6.7) K/mm3 Absolute Nucleated RBC 0.000 (0.0-0.012) K/mm3 Nucleated RBC % 0.0 (0.0-0.2) % PT 13.2 (11.1-14.7) Seconds INR 1.0 APTT 24.5 (22.3-36.8) Seconds D-Dimer < 0.27 Cancelled (<0.48) ug/mL Sodium 136 L (137-145) mmol/L Potassium 3.5 (3.4-5.0) mmol/L Chloride 101 (98-107) mmol/L Carbon Dioxide 27 (22-30) mmol/L Anion Gap 8 (4-12) mmol/L BUN 15 (7-17) mg/dL Creatinine 0.60 L (0.7-1.0) mg/dL Estim Creat Clear Calc Not Reportable Estimated GFR > 60 (59 - ) Glucose 91 (65-110) mg/dL Calcium 9.3 (8.4-10.2) mg/dL Total Bilirubin 1.3 (0.2-1.3) mg/dL AST 24 (14-36) U/L ALT 17 (6-35) U/L Alkaline Phosphatase 58 (38-126) U/L Troponin I < 0.012 (0.000-0.034) ng/mL NT-Pro-B Natriuret Pep 125 H (19.9-100) pg/mL Total Protein 8.0 (6.3-8.2) g/dL Albumin 4.8 (3.5-5.1) g/dL Beta HCG, Quant < 2.39 mIU/ML 03/24/24 Range/Units 22:33 WBC (4.5-10.0) K/mm3 RBC (4.2-5.4) M/mm3 Hgb (12.0-15.0) g/dL Hct (37.0-47.0) % MCV (80-100) fl MCH (26-34) pg MCHC (32-36) g/dl RDW (11.5-14.5) % Plt Count (150-375) k/mm3 MPV (7.4-10.4) fl Immature Gran % (Auto) (0-0.5) % Neut % (Auto) (45.5-73.1) % Lymph % (Auto) (18.3-44.2) % [place] % (Auto) (2.6-8.5) % Eos % (Auto) (0-4.4) % Baso % (Auto) (0.2-1.2) % Lymph # (Auto) (0.9-3.2) K/mm3 [place] # (Auto) (0.1-0.6) K/mm3 Eos # (Auto) (0-0.3) K/mm3 Baso # (Auto) (0.0-0.1) K/mm3 Abs Immat Gran (auto) (0.00-0.031) K/mm3 Absolute Neuts (auto) (1.3-6.7) K/mm3 Absolute Nucleated RBC (0.0-0.012) K/mm3 Nucleated RBC % (0.0-0.2) % PT (11.1-14.7) Seconds INR APTT (22.3-36.8) Seconds D-Dimer (<0.48) ug/mL Sodium (137-145) mmol/L Potassium (3.4-5.0) mmol/L Chloride (98-107) mmol/L Carbon Dioxide (22-30) mmol/L Anion Gap (4-12) mmol/L BUN (7-17) mg/dL Creatinine (0.7-1.0) mg/dL Estim Creat Clear Calc Estimated GFR (59 - ) Glucose (65-110) mg/dL Calcium (8.4-10.2) mg/dL Total Bilirubin (0.2-1.3) mg/dL AST (14-36) U/L ALT (6-35) U/L Alkaline Phosphatase (38-126) U/L Troponin I < 0.012 (0.000-0.034) ng/mL NT-Pro-B Natriuret Pep (19.9-100) pg/mL Total Protein (6.3-8.2) g/dL Albumin (3.5-5.1) g/dL Beta HCG, Quant mIU/ML Imaging Data Attestation: I personally reviewed and interpreted this imaging study as follows: My impression: Impressions Chest X-Ray 03/24/24 20:16 IMPRESSION: No acute cardiopulmonary process. ECG Data EKG #1: ECG completion date: 03/24/24 ECG completion time: 19:46 Prior ECG tracings: not available for review Interpretation: No ST segment elevations, depressions or inversions. No acute ischemic changes. No QTC interval prolongation, normal rate rhythm an axis. No mold HI interval 139, QTC interval of 408. Narrow QRS complexes. One supraventricular beat is seen throughout the entire strip. Overall normal sinus rhythm. EKG #2: Attestation: I personally reviewed and interpreted this ECG as follows: ECG completion date: 03/24/24 ECG completion time: 22:30 Prior ECG tracings: available for review Interpretation: Normal sinus rhythm, normal rate rhythm an axis, no ST segment elevations, depressions or inversions. No ectopy. No significant oval change from previous EKG earlier today. No acute ischemic changes or events. No ectopy or arrhythmia. No interval prolongation or narrowing. Discharge Plan Discharge Clinical Impression: Nonsustained supraventricular tachycardia Patient Disposition: Home, Self-Care Condition: Stable Instructions: Antibiotic Form Prescriptions: No Action duloxetine [Cymbalta] 60 mg capsule,delayed release(DR/EC) 60 mg PO DAILY omeprazole 20 mg Capsule,Delayed Release(Dr/Ec) 20 mg PO DAILY dextroamphetamine-amphetamine 10 mg capsule,extended release 24hr 10 mg PO DAILY ibuprofen 800 mg tablet 800 mg PO TID PRN (Reason: pain) Qty: 30 1RF Follow-up/Referrals: Leo Hughes MD [Physician] - 3 Days (Episode of prolonged supraventricular tachycardia, resolved) Lidya,GUERLINE Gomez [Primary Care Provider] - Time of Disposition: 23:17
[2024-03-24 20:01] LABS: Basophils Percent Auto 0.3 % (0.2-1.2); Eosinophils Percent Auto 0.2 % (0-4.4); Hematocrit 38.1 % (37.0-47.0); Hemoglobin 12.8 g/dL (12.0-15.0); Immature Granulocyte Absolute 0.04 K/mm3 (0.00-0.031); Immature Granulocyte Percent A 0.4 % (0-0.5); Lymphocytes Absolute Auto 2.79 K/mm3 (0.9-3.2); Lymphocytes Percent Auto 25.9 % (18.3-44.2); Mean Corpuscular HGB Conc 33.6 g/dl (32-36); Mean Corpuscular Hemoglobin 32.1 pg (26-34); Mean Corpuscular Volume 95.5 fl (80-100); Mean Platelet Volume 12.6 fl (7.4-10.4); Monocytes Absolute Auto 0.9 K/mm3 (0.1-0.6); Monocytes Percent Auto 7.9 % (2.6-8.5); Neutrophils Percent Auto 65.3 % (45.5-73.1); Platelet Count Result 179 k/mm3 (150-375); Red Blood Count 3.99 M/mm3 (4.2-5.4); Red Cell Distribution Width 12.5 % (11.5-14.5); White Blood Count 10.8 K/mm3 (4.5-10.0)
[2024-03-24 20:14] LABS: Alanine Aminotransferase 17 U/L (6-35); Albumin Level 4.8 g/dL (3.5-5.1); Alkaline Phosphatase 58 U/L (38-126); Anion Gap 8 mmol/L (4-12); Aspartate Amino Transferase 24 U/L (14-36); Bilirubin,Total 1.3 mg/dL (0.2-1.3); Blood Urea Nitrogen 15 mg/dL (7-17); Calcium 9.3 mg/dL (8.4-10.2); Carbon Dioxide 27 mmol/L (22-30); Chloride 101 mmol/L (98-107); Estimated Glomerular Filt Rate > 60; Glucose 91 mg/dL (65-110); Potassium 3.5 mmol/L (3.4-5.0); Sodium 136 mmol/L (137-145)
[2024-03-24 20:14] LABS: Partial Thromboplastin Time 24.5 Seconds (22.3-36.8); Prothrombin Time 13.2 Seconds (11.1-14.7)
[2024-03-24 20:26] LABS: NT Pro B Type Natriuretic Pept 125 pg/mL (19.9-100); Troponin I < 0.012 ng/mL (0.000-0.034)
[2024-03-24 20:31] LABS: Beta HCG Quantitative < 2.39 mIU/ML
[2024-03-24 21:20] LABS: D Dimer < 0.27 ug/mL (<0.48)
--- NOTE | 2024-03-24 22:26 | ECG_ITS ---
Test Date: 2024-03-24 22:30:39 Measurements Intervals [place] Rate: 66 P: 1 SC: 132 QRS: 62 QRSD: 90 T: 65 QT: 383 QTc: 402 Interpretive Statements SINUS RHYTHM Compared to ECG 03/24/2024 19:46:27 No significant changes Electronically Signed On 03-25-2024 12:08:56 BELT CUTTER by Jesse Santos M.D.
[2024-03-24 23:09] LABS: Troponin I < 0.012 ng/mL (0.000-0.034)
== END 2024-03-24 23:22 | disposition home or self-care (01) ==
PROVIDERS: Emergency Provider Student in an Organized Health Care Education/Training Program; PCP Registered Nurse
DX: I47.10 Supraventricular tachycardia, unspecified (principal); K21.9 Gastro-esophageal reflux disease without esophagitis; F90.9 Attention-deficit hyperactivity disorder, unspecified type; F41.9 Anxiety disorder, unspecified; F32.A Depression, unspecified; F43.10 Post-traumatic stress disorder, unspecified; Z79.899 Other long term (current) drug therapy
CPT/HCPCS: 36415; 71045; 80053; 83880; 84484; 84702; 85025; 85380; 85610; 85730; 93005; 99284

== ENCOUNTER 2024-04-27 12:09 | Outpatient (CLI) | payer OTHER, SELFPAY ==
[2024-04-27 12:47] LABS: Basophils Percent Auto 0.5 % (0.2-1.2); Eosinophils Percent Auto 0.3 % (0-4.4); Hematocrit 38.8 % (37.0-47.0); Hemoglobin 12.8 g/dL (12.0-15.0); Immature Granulocyte Absolute 0.02 K/mm3 (0.00-0.031); Immature Granulocyte Percent A 0.3 % (0-0.5); Lymphocytes Absolute Auto 1.31 K/mm3 (0.9-3.2); Lymphocytes Percent Auto 17.6 % (18.3-44.2); Mean Corpuscular Hemoglobin 31.5 pg (26-34); Mean Corpuscular Volume 95.6 fl (80-100); Monocytes Absolute Auto 0.5 K/mm3 (0.1-0.6); Monocytes Percent Auto 6.6 % (2.6-8.5); Neutrophils Absolute Auto 5.6 K/mm3 (1.3-6.7); Neutrophils Percent Auto 74.7 % (45.5-73.1); Platelet Count Result 166 k/mm3 (150-375); Red Blood Count 4.06 M/mm3 (4.2-5.4); Red Cell Distribution Width 12.3 % (11.5-14.5); White Blood Count 7.5 K/mm3 (4.5-10.0)
[2024-04-27 13:47] LABS: Erythrocyte Sedimentation Rate 12 mm/hr (0-20)
[2024-04-27 14:07] LABS: HIV 1/2 Ab P24 Ag Result Negative (Negative)
[2024-04-27 14:11] LABS: CRP < 0.5 mg/dL (<1.0)
[2024-04-27 14:46] LABS: Hepatitis C Virus Antibody Negative (Negative)
[2024-05-01 14:28] LABS: Cyclic Citrullinated Peptide <16 UNITS
== END 2024-04-27 12:10 | disposition home or self-care (01) ==
LOC: ANHLAB 12:12
PROVIDERS: PCP Registered Nurse; Visit Provider Registered Nurse
DX: K12.0 Recurrent oral aphthae (principal); M25.50 Pain in unspecified joint; R10.84 Generalized abdominal pain; R19.7 Diarrhea, unspecified; R53.83 Other fatigue
CPT/HCPCS: 36415; 82607; 82728; 85025; 85652; 86038; 86039; 86140; 86200; 86703; 86803; G0432

== ENCOUNTER 2025-01-29 07:21 | Outpatient (CLI) | payer OTHER, SELFPAY ==
[2025-01-29 08:08] LABS: Hematocrit 40.3 % (37.0-47.0); Hemoglobin 13.2 g/dL (12.0-15.0); Immature Granulocyte Percent A 0.4 % (0-0.5); Lymphocytes Absolute Auto 1.81 K/mm3 (0.9-3.2); Mean Corpuscular HGB Conc 32.8 g/dl (32-36); Mean Corpuscular Hemoglobin 32.0 pg (26-34); Mean Corpuscular Volume 97.6 fl (80-100); Nucleated Red Blood Cells Absolute Auto 0.000 K/mm3 (0.0-0.012); Nucleated Red Blood Cells Perc 0.0 % (0.0-0.2); Platelet Count Result 189 k/mm3 (150-375); Red Blood Count 4.13 M/mm3 (4.2-5.4); White Blood Count 5.1 K/mm3 (4.5-10.0)
[2025-01-29 08:28] LABS: Alanine Aminotransferase 14 U/L (6-35); Albumin Level 4.3 g/dL (3.5-5.1); Alkaline Phosphatase 47 U/L (38-126); Anion Gap 6 mmol/L (4-12); Aspartate Amino Transferase 25 U/L (14-36); Bilirubin,Total 1.8 mg/dL (0.2-1.3); Blood Urea Nitrogen 12 mg/dL (7-17); Calcium 8.9 mg/dL (8.4-10.2); Carbon Dioxide 27 mmol/L (22-30); Chloride 101 mmol/L (98-107); Cholesterol 183 mg/dL (0-200); Estimated Glomerular Filt Rate > 60; Glucose 87 mg/dL (65-110); HDL Direct 76 mg/dL; Potassium 4.1 mmol/L (3.4-5.0); Sodium 134 mmol/L (137-145); Total Protein 7.2 g/dL (6.3-8.2); Triglycerides 76 mg/dL (<150); Uric Acid 3.0 mg/dL (2.5-7.5)
[2025-01-29 08:54] LABS: Thyroid Stimulating Hormone Reflex 1.240 uIU/mL (0.465-4.68)
[2025-01-29 09:22] LABS: Vitamin B12 546.0 pg/mL (239-931)
== END 2025-01-29 07:22 | disposition home or self-care (01) ==
LOC: ANHLAB 07:22
PROVIDERS: PCP Registered Nurse; Visit Provider Registered Nurse
DX: Z00.00 Encounter for general adult medical examination without abnormal findings (principal); I47.10 Supraventricular tachycardia, unspecified; F33.41 Major depressive disorder, recurrent, in partial remission; K12.0 Recurrent oral aphthae
CPT/HCPCS: 36415; 80053; 80061; 82607; 84443; 84550; 85025

== ENCOUNTER 2025-03-27 13:04 | Outpatient (CLI) | payer OTHER, SELFPAY ==
--- NOTE | 2025-03-27 13:12 | ECG_ITS ---
Test Date: 2025-03-27 13:19:25 Measurements Intervals [place] Rate: 80 P: 53 [place]: 148 QRS: 62 QRSD: 82 T: 62 QT: 359 QTc: 414 Interpretive Statements SINUS RHYTHM POSSIBLE RIGHT VENTRICULAR CONDUCTION DELAY BASELINE WANDER- V2 BORDERLINE ECG Compared to ECG 03/24/2024 22:30:39 NO SIGNIFICANT CHANGE Electronically Signed On 03-27-2025 13:27:16 PACK OPERATOR by Alfonso Aj D.O.
--- OUTSIDE RECORDS SUMMARY | 2025-03-27 14:13 | XMS_ITS | Encounter Summary ---
Author Organization [facility] Address [facility] [place] [address] Care Team Providers Care Refinery Operator Helper Crude Unit Name Role Phone Patricia Bose Primary Care Provider [phone] Bertrand Montejo MD Unavailable Encounter Details Date Type Department Care Team (Late st Contact Info) Description 12/30/2023 InPronto Message Enc [facility] Family & Internal Medicine [address] [id number] [place], [facility] Provider Xray results Social History Tobacco Use Types Packs/Day Years Used Date Smoking Tobacco: Never Smokeless Tobacco: Never Alcohol Use Standard Drinks/Week Comments Yes 8.3 (1 standard drink = 0.6 oz p ure alcohol) AUDIT-C Answer Date Recorded Frequency of Alcohol Consumption 4 or more times a week 01/15/2019 Average Number of Drinks 1 or 2 019 Frequency of Binge Drinking Not on file 12/25 PHQ-2 Answer Date Recorded Patient Health Questionnaire-2 Score 0 04/26/2023 Comments No Sex and Gender Information Value Date Recorded Sex Assigned at Not on file Legal Sex Female 8:44 AM CDT Gender Identity Female 08/25/2021 6:10 AM CDT Sexual Orientation Not on file documented as of this encounter Plan of Treatment Not on file documented as of this encounter Visit Diagnoses Not on filedocumented in this encounter Additional Health Concerns Assessment Noted Time PHQ-9 Depression Total Score: 8 02/11/20 22 1:21 PM CDT documented as of this encounter Care Teams Refinery Operator Helper Crude Unit Relationship Specialty Start Date End Date Patricia Bose APNP [address] [place] [id number] PCP - General NURSE PRACTITIONER 01/15/19 Bertrand Montejo MD [address] [address] Referring Physician VASCULAR SURGERY 01/30/19 documented as of this encounter
--- OUTSIDE RECORDS SUMMARY | 2025-03-27 14:14 | XMS_ITS | Encounter Summary ---
Author Organization [facility] Address [facility] [place] [address] Care Team Providers Care Block Stacker Name Role Phone Patricia Bose Primary Care Provider +1- [phone] Bertrand Montejo MD Unavailable Encounter Details Date Type Department Care Team (Late st Contact Info) Description 05/20/2021 [employer] Message Enc [facility] Medical Group Family & Internal Medicine [facility] [address] [place] [address] Patricia Bose APNP [address] [place] [address] Adderall refill Social History Tobacco Use Types Packs/Day Years Used Date Smoking Tobacco: Never Smokeless Tobacco: Never Alcohol Use Standard Drinks/Week Comments Yes 0 (1 standard drink = 0.6 oz pur e alcohol) AUDIT-C Answer Date Recorded Frequency of Alcohol Consumption 4 or more times a week 01/15/2019 Average Number of Drinks 1 or 2 019 Frequency of Binge Drinking Not on file 12/25 PHQ-2 Answer Date Recorded PHQ-2 Score - If the patient scores above 3, please move on to questions 3-9 0 08/07/2020 Comments No Sex and Gender Information Value [...] Assessment Noted Time PHQ-9 Depression Total Score: 2 08/08/19 21 10:11 AM CDT documented as of this encounter Care Teams Block Stacker Relationship Specialty Start Date End Date Patricia Bose APNP [address] [place] [address] [id number] PCP - General NURSE PRACTITIONER 01/15/19 Bertrand Montejo MD [address] [address] Referring Physician VASCULAR SURGERY 01/30/19 documented as of this encounter
--- OUTSIDE RECORDS SUMMARY | 2025-03-27 14:14 | XMS_ITS | Encounter Summary ---
Author Organization [facility] Address [facility] [place] [address] Care Team Providers Care Department Head [employer] Name Role Phone Patricia Bose Primary Care Provider [phone]- [phone] Bertrand Montejo MD Unavailable Encounter Details Date Type Department Care Team (Late st Contact Info) Description 06/01/2022 [employer] Message Enc [facility] Medical Group Family & Internal Medicine - [place] [address] [place] [address] Patricia Bose APNP [address] [place] [address] Yeast infection Social History Tobacco Use Types Packs/Day Years [...] 3, please move on to questions 3-9 3 02/10/2022 Comments No Sex and Gender Information Value [...] documented as of this encounter Care Teams Department Head [employer] Relationship Specialty Start Date End Date Patricia Bose APNP [address] [place] [id number] PCP - General NURSE PRACTITIONER 01/15/19 Bertrand Montejo MD [address] [address] Referring Physician VASCULAR SURGERY 01/30/19 documented as of this encounter
--- OUTSIDE RECORDS SUMMARY | 2025-03-27 14:14 | XMS_ITS | Encounter Summary ---
Author Organization [facility] Address [facility] [place] [address] Care Team Providers Care Ramp Attendant Name Role Phone Patricia Bose Primary Care Provider [phone] [phone] Bertrand Montejo MD Unavailable Reason for Visit * Reason Onset Date Comments Medication 01/29/2022 Encounter Details Date Type Department Care Team (Late st Contact Info) Description 01/29/2022 [employer] Message Enc [facility] Medical Group Family & Internal Medicine [place] [phone] [place] [address] Patricia Bose APNP [address] [place] [address] Shaquille pettit Social History Tobacco Use Types Packs/Day Years [...] documented as of this encounter Care Teams Ramp Attendant Relationship Specialty Start Date End Date Patricia Bose APNP [address] [place] [address] PCP - General NURSE PRACTITIONER 01/15/19 Bertrand Montejo MD [address] [address] Referring Physician VASCULAR SURGERY 01/30/19 documented as of this encounter
--- OUTSIDE RECORDS SUMMARY | 2025-03-27 14:14 | XMS_ITS | Encounter Summary ---
Author Organization [facility] Address [facility] [place] [address] Care Team Providers Care Keno Attendant Name Role Phone Patricia Bose Primary Care Provider [phone]- [phone] eBrtrand Montejo MD Unavailable Encounter Details Date Type Department Care Team (Late st Contact Info) Description 07/25/2021 [employer] Message Enc [facility] Medical Group Family & Internal Medicine [facility] [address] [place] [address] aPtricia Bose APNP [address] [place] [address] Panic Attacks Social History Tobacco Use Types Packs/Day Years [...] AM CDT Sexual Orientation Not on file COVID-19 Exposure Response Date Recorded In the last 10 days, have yo u been in contact with someone who was confirmed or suspected to have Coronavirus/COVID-19? No / Unsure 07/09/2021 8:56 AM CDT documented as of this encounter Plan of Treatment Not on file documented as of this encounter Visit Diagnoses Not on filedocumented in this encounter Additional Health Concerns Assessment Noted Time PHQ-9 Depression Total Score: 2 08/08/19 21 10:11 AM CDT documented as of this encounter Care Teams Keno Attendant Relationship Specialty Start Date End Date Patricia Bose APNP [address] [place] [address] [phone] PCP - General NURSE PRACTITIONER 01/15/19 Bertrand Montejo MD [address] [address] Referring Physician VASCULAR SURGERY 01/30/19 documented as of this encounter
--- OUTSIDE RECORDS SUMMARY | 2025-03-27 14:14 | XMS_ITS | Encounter Summary ---
Author Organization [facility] Address [facility] [place] [address] Care Team Providers Care Griddle Attendant Name Role Phone Patricia Bose Primary Care Provider +1 [phone] Bertrand Montejo MD Unavailable Reason for Visit * Reason Onset Date Comments Medication 10/09/2021 Encounter Details Date Type Department Care Team (Late st Contact Info) Description 10/09/2021 [employer] Message Enc [facility] Medical Group Family & Internal Medicine [place] [id number] [place] [address] Patricia Bose APNP [address] [place] [address] Medication for Tracey Social History Tobacco Use Types Packs/Day Years [...] on file documented as of this encounter Progress Notes * Yasmeen Aponte MA - 10/19/2021 8:58 AM CDT My chart message sent to pt. BB 10/19/2021 * ROSANNE Lopez - 10/19/2021 8:32 AM CDT All meds sent * ROSANNE Lopez - 10/19/2021 8:26 AM CDTFrom: Marielena Dennison To: Patricia Bose Sent: 10/09/2021 2:48 PM CDT Subject: Medication for Tracey Alberto Gomez- We spoke at my last appt about getting doxy prior to leaving for [place]. I leave on October 26. Was wondering if you can send a script over. Also my friend that is going got a script for a prophylactic scabies treatment. She said it is a wash that you put on and sleep in. Not sure if you know what it is o r not. But could you send the doxy for sure? Thanks documented in this encounter Plan of Treatment Not on file documented as of this encounter Visit Diagnoses Diagnosis Yeast infection- Primary Other and unspecified mycoses Scabies Need for malaria prophylaxis documented in this encounter Additional Health Concerns Assessment Noted Time PHQ-9 Depression Total Score: 2 08/08/19 21 10:11 AM CDT documented as of this encounter Care Teams Griddle Attendant Relationship Specialty Start Date End Date Patricia Bose APNP [address] [place] [address] PCP - General NURSE PRACTITIONER 01/15/19 Bertrand Montejo MD [facility] [address] [place] [address] Referring Physician VASCULAR SURGERY 01/30/19 documented as of this encounter
--- OUTSIDE RECORDS SUMMARY | 2025-03-27 14:14 | XMS_ITS | Clinical Summary ---
Author Organization [address] Address [address] [place] [phone] Care Team Providers Care Manufacturer'S Representative Name Role Phone Miguel Ontiveros MD Primary Care Provider [phone] Allergies Active Allergy Reactions Criticality Noted Date Comments Adhesive Rash Medium 01/26/2021 Medications valACYclovir (VALTREX) 1 gram tablet Take 2,000 mg by mouth 2 (two) times a day as needed Prn only for outbreak fever blisters 1 Active sertraline (ZOLOFT) 50 mg tablet Take 50 mg by mouth daily 1 Active omeprazole (PriLOSEC) 20 mg capsule Take 20 mg by mouth daily Active dextroamphetami ne-amphetamine XR (ADDERALL XR) 20 mg 24 hr capsule Take 20 mg by mouth teacher early childhood development before breakfast 1 Active ibuprofen (ADVIL,MOTRIN) 800 mg tablet Take 1 tablet (800 mg total) by mouth every 6 (six) hours as needed for pain 40 tablet 1 Active HYDROcodone-trish taminophen (NORCO) 5-325 mg per tablet 1 Active hydrOXYzine (VISTARIL) 50 mg capsule 1 Active ondansetron (ZOFRAN) 4 mg tablet 1 Active Active Problems Problem Noted Date Diagnosed Date Varicose veins of left lower extremity with pain 11/11/2020 Overview (11/11/2020): Added automatically from request for surgery [id number] Assessment & Plan (01/26/2021 4:22 PM CDT): IMpression: Patient is status post left greater saphenous vein EVLT and stab phlebectomies. She reports doing well after the procedure and states she is still sore as she had knee arthroscopy 2 weeks afterwards. Stab phlebectomy sites are healed. Venous duplex reveals ablated left greater saphenous vein with no acute DVT's. Plan: Continue utilizing compression stockings. Patient may follow up as needed. Gastroesophageal reflux disease without esophagi tis 05/29/2019 Hyperthyroidism 05/08/2019 Varicose veins of bilateral lower extremities wi th pain 03/01/2019 Chronic post-traumatic stress disorder (PTSD) Anxiety 01/05/2019 Depression 01/05/2019 Acute stress disorder 02/02/2017 Attention-deficit hyperactivity disorder, unspec ified type 09/24/2016 Immunizations Immunization Administration Dates Next Due Influenza, Quadrivalent, Split, Intramuscular Influenza, Unspecified 01/23/2019 Pfizer SARS-CoV-2 Monovalent Vaccination (12+ Yrs) PURPLE 05/05/2020,04/14/2020 Tdap 05/29/2016 Surgical History Surgery Date Site/Laterality Comments VAGINAL DELIVERY x 2 HYSTERECTOMY 04/25/2012 - 04/24/2013 laparoscopic partial (ovaries intact) TEAR DUCT SURGERY 04/25/1986 - 04/24/1987 6 months old not sure which eye LAPAROSCOPY 04/25/2008 - 04/24/2009 diagnostic for endometirosis dx COSMETIC SURGERY 2004, 2018 breast augmentation VASCULAR SURGERY 12/18/2020 Left ELVT and phlebs Medical History Medical History Date Comments ADD (attention deficit disorder) HSV (herpes simplex virus) infection Acute stress reaction PONV (postoperative nausea and vomiting) GERD (gastroesophageal reflux disease) controlled with medication 2 para 2 Wears glasses or contacts Immunization series complete cov id vaccine completed card on file Endometriosis Adenomyosis Kidney stones passed own on x 2 2008, 2010 during Varicose veins of both lower extremities Social History Tobacco Use Types Packs/Day Years Used Date Smoking Tobacco: Never Smokeless Tobacco: Never AUDIT-C Answer Date Recorded Q1: How often do you have a drink containing alc ohol? 2-4 times a month 12/17/2020 Q2: How many drinks containi ng alcohol do you have on a typical day when you are drinking? 3 or 4 12/17/2020 Q3: How often do you have si x or more drinks on one occasion? Monthly 12/17/2020 Comments No Sex and Gender Information Value Date Recorded Sex Assigned at Not on file Legal Sex Female 7:55 PM NURSING FACULTY Gender Identity Female 12/16/2020 10:09 AM CDT Sexual Orientation Not on file Last Filed Vital Signs Vital Sign Reading Time Taken Comments Blood Pressure 111/75 01/26/2021 1:21 PM CDT Pulse 68 01/26/2021 1:21 PM CDT Temperature 36.7 C (98.1 F) 12/18/2020 10:15 AM CDT Respiratory Rate 18 12/18/2020 10:50 AM CDT Oxygen Saturation 100% 12/18/2020 10:50 AM CDT Inhaled Oxygen Concentration - - Weight 59 kg (130 lb) 01/26/2021 1:21 PM CDT Height 172.7 cm (5' 8) 01/26/2021 1:21 PM CDT Body Mass Index 19.77 01/26/2021 1:21 PM CDT Plan of Treatment Not on file Insurance [employer] Care Teams Manufacturer'S Representative Relationship Specialty Start Date End Date Miguel Ontiveros MD [address] [place] [address] PCP - General Internal Medicine 12/09/20
--- OUTSIDE RECORDS SUMMARY | 2025-03-27 14:14 | XMS_ITS | Encounter Summary ---
Author Organization [facility] Address [facility] [place] [address] Care Team Providers Care Photographer Aerial Name Role Phone Patricia Bose Primary Care Provider [phone]- [phone] Bertrand Montejo MD Unavailable Encounter Details Date Type Department Care Team (Late st Contact Info) Description 03/01/2023 [employer] Message Enc [facility] Medical Group Family & Internal Medicine - [place] [address] [place] [address] Patricia Bose APNP [address] [place] [address] UTI Social History Tobacco Use Types Packs/Day Years Used Date Smoking Tobacco: Never Smokeless Tobacco: Never Alcohol Use Standard Drinks/Week Comments Not Currently 0 (1 standard drink = 0.6 oz [...] as of this encounter Progress Notes * ROSANNE Lopez - 03/01/2023 5:05 PM CST Meds sent over GAGE CLOSER * ROSANNE Lopez - 03/01/2023 5:01 PM CSTFrom: Marielena Dennison To: Patricia Bose Sent: 03/01/2023 8:27 AM MORTGAGE CLOSER Subject: UTI Hey, I'm currently in [place] and I am getting a UTI. I have urgency, increased frequency and it hurts to urinate. I'm traveling home today and was wondering if you would be willing to call my in an antibiotic to hot die picker tomorrow? And possibly diflucan....cause I always get a yeast infection when I take antibiotics. Thanks Reid johansen GAGE CLOSER documented in this encounter Plan of Treatment Not on file documented as of this encounter Visit Diagnoses Diagnosis Acute cystitis without hematuria- Primary Acute cystitis documented in this encounter Additional Health Concerns Assessment Noted Time PHQ-9 Depression Total Score: 8 02/11/20 22 1:21 PM CDT documented as of this encounter Care Teams Photographer Aerial Relationship Specialty Start Date End Date Patricia Bose APNP [address] [place] [address] PCP - General NURSE PRACTITIONER 01/15/19 Bertrand Montejo MD [address] [address] Referring Physician VASCULAR SURGERY 01/30/19 documented as of this encounter
--- OUTSIDE RECORDS SUMMARY | 2025-03-27 14:14 | XMS_ITS | Encounter Summary ---
Author Organization [facility] Address [facility] [place] [address] Care Team Providers Care Tile Classifier Name Role Phone Patricia Bose Primary Care Provider [phone]- [phone] Bertrand Montejo MD Unavailable Encounter Details Date Type Department Care Team (Late st Contact Info) Description 05/29/2021 [employer] Message Enc [facility] Medical Group Family & Internal Medicine [facility] [address] [place] [address] Patricia Bose APNP [address] [place] [address] Valcyclavir Social History Tobacco Use Types Packs/Day Years [...] documented as of this encounter Care Teams Tile Classifier Relationship Specialty Start Date End Date Patricia Bose APNP [address] [place] [id number] PCP - General NURSE PRACTITIONER 01/15/19 Bertrand Montejo MD [address] [address] Referring Physician VASCULAR SURGERY 01/30/19 documented as of this encounter
--- OUTSIDE RECORDS SUMMARY | 2025-03-27 14:14 | XMS_ITS | Encounter Summary ---
Author Organization [facility] Address [facility] [place] [address] Care Team Providers Care Manager Rfid Name Role Phone Patricia Bose Primary Care Provider +1- [phone] Bertrand Montejo MD Unavailable Encounter Details Date Type Department Care Team (Late st Contact Info) Description 02/12/2022 [employer] Message Enc [facility] Medical Group Family & Internal Medicine - [place] [address] [place] [address] Patricia Bose APNP [address] [place] [address] [facility] Social History Tobacco Use Types Packs/Day Years [...] suspected to have Coronavirus/COVID-19? No / Unsure 02/10/2022 10:59 AM CDT documented as of this encounter Plan of Treatment Not on file documented as of this encounter Visit Diagnoses Not on filedocumented in this encounter Additional Health Concerns Assessment Noted Time PHQ-9 Depression Total Score: 8 02/11/20 22 1:21 PM CDT documented as of this encounter Care Teams Manager Rfid Relationship Specialty Start Date End Date Patricia Bose APNP [address] [place] [id number] PCP - General NURSE PRACTITIONER 01/15/19 Bertrand Montejo MD [address] [address] Referring Physician VASCULAR SURGERY 01/30/19 documented as of this encounter
--- OUTSIDE RECORDS SUMMARY | 2025-03-27 14:14 | XMS_ITS | Encounter Summary ---
Author Organization [facility] Address [facility] [place] [address] Care Team Providers Care Highway Patrol Officer Name Role Phone Patricia Bose Primary Care Provider +1- [phone] Bertrand Montejo MD Unavailable Encounter Details Date Type Department Care Team (Late st Contact Info) Description 02/06/2025 Telephone [facility] Medical Group Family & Internal Medicine [facility] [address] [place] [address] Patricia Bose APNP [address] [place] [address] Social History Tobacco Use Types Packs/Day Years [...] Date Recorded Patient Health Questionnaire-2 Score 0 01/23/2025 Comments No Sex and Gender Information Value Date Recorded Sex Assigned at Not on file Legal Sex Female 8:44 AM CDT Gender Identity Female 08/25/2021 6:10 AM CDT Sexual Orientation Not on file documented as of this encounter Progress Notes * ROSANNE Lopez - 02/06/2025 1:07 PM CDT In regards to labs: CBC OK Sodium is a little low--have her repeat a CMP in about a month. No real concern at this time, just want to make sure not continuing to drop. Bilirubin is a little elevated--other liver labs OK. We can recheck this in a month with her repeatCMP. Do not have her Vit b 12 and direct LDL for some reason. documented in this encounter Plan of Treatment Scheduled Orders Name Type Priority Associated Diagnoses Orde r Schedule COMPREHENSIVE METABOLIC PANEL Lab Routine Hyponatremia Elevated bilirubin Expected: 03/09/2025 (Approximate), Expires: 03/09/2026 documented as of this encounter Visit Diagnoses Diagnosis Hyponatremia- Primary Hyposmolality and/or hyponatremia Elevated bilirubin Jaundice, unspecified, not of documented in this encounter Additional Health Concerns Assessment Noted Time PHQ-9 Depression Total Score: 3 04/27/19 25 2:14 PM SOLAR INSTALLER PV documented as of this encounter Care Teams Highway Patrol Officer Relationship Specialty Start Date End Date Patricia Bose APNP [address] [place] [id number] PCP - General NURSE PRACTITIONER 01/15/19 Bertrand Montejo MD [address] [address] Referring Physician VASCULAR SURGERY 01/30/19 documented as of this encounter
--- OUTSIDE RECORDS SUMMARY | 2025-03-27 14:14 | XMS_ITS | Clinical Summary ---
Author Organization [facility] Address [address] [place] [address] Care Team Providers Care Scaffold Builder Name Role Phone Lidya Patricia LAY Primary Care Provider +1- [phone] Bertrand Montejo MD Unavailable Allergies Active Allergy Reactions Criticality Noted Date Comments Tape Rash Medium 01/26/2021 Medications valACYclovir (VALTREX) 1 g tabletIndication s:Cold sore Take 2 tabs twice daily for one day. 4 tablet 2 023 Active Additional Information Patient not taking.Reported on 01/23/2025 loratadine (CLARITIN) 10 MG tablet 024 Active lidocaine viscous (XYLOCAINE) 2 % solution MIX WITH EQUAL PARTS MAALOX AND BENDADRYL THEN SWISH AND SPIT EVERY HOUR NEEDED DIRECTED 024 Active metoprolol succinate ER (TOPROL-XL) 25 MG 24 hr tablet Take 0.5 tablets (12.5 mg total) by mouth daily. 025 Active traZODone (DESYREL) 50 MG tabletIndication s:Primary insomnia Take one half tablet once nightly as needed for insomnia. 90 tablet 3 025 Active triamcinolone (KENALOG) 0.1 % pasteIndications :Canker sores oral Apply to canker sores twice daily for 2 weeks 5 g 1 025 Active amphetamine-dext roamphetamine XR (ADDERALL XR) 30 mg 24 hr capsuleIndicatio ns:Attention deficit hyperactivity disorder (ADHD), combined type Take 1 capsule (30 mg total) by mouth every morning. Please call office to schedule your follow-up appointment to ensure no interruption in refills. 30 capsule Active FLUoxetine (PROZAC) 20 MG capsuleIndicatio ns:Anxiety,Recur rent major depressive disorder, in partial remission TAKE 1 CAPSULE BY MOUTH DAILY 90 capsule 3 Active triamcinolone (KENALOG) 0.1 % pasteIndications :Canker sores oral Apply to canker sores twice daily for 2 weeks 5 g 1 025 2024 Discontinued(R eorder) FLUoxetine (PROZAC) 20 MG capsuleIndicatio ns:Anxiety,Recur rent major depressive disorder, in partial remission Take 1 capsule (20 mg total) by mouth daily. 90 capsule 3 025 2024 Discontinued amphetamine-dext roamphetamine XR (ADDERALL XR) 30 mg 24 hr capsuleIndicatio ns:Attention deficit hyperactivity disorder (ADHD), combined type Take 1 capsule (30 mg total) by mouth every morning. Please call office to schedule your follow-up appointment to ensure no interruption in refills. 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 Gastroesophageal reflux disease without esophagi tis 05/29/2019 Venous insufficiency of both lower extremities 1 06/14/2018 Varicose veins of bilateral lower extremities wi th pain 03/01/2019 Chronic post-traumatic stress disorder (PTSD) Anxiety 01/05/2019 ADHD (attention deficit hyperactivity disorder) 01/05/2019 Depression 01/05/2019 Resolved Problems Problem Noted Date Diagnosed Date Resolved Date Hyperthyroidism 05/08/2019 12/29/2023 Encounters Date Type Department Care Team Description 02/06/2025 Telephone [facility] Family & Internal Medicine [address] [address] Patricia Bose APNP 01/23/2025 9:00 AM CDT Office Visit [facility] Family & Internal Medicine [address] [phone] Patricia Bose APNP Physical 01/23/2025 Travel from Last 3 Months Immunizations Immunization Administration Dates Next Due Influenza Adult (Generic) 01/23/2019,02/02/2017 PFIZER COVID-19 (ORIGINAL FO RMULATION, PURPLE CAP) mRNA, LNP-S, PF, 30 MCG/0.3 ML DOSE 05/05/2020,04/14/2020 Tdap (Adacel) 08/25/2021 Tdap (Generic) 05/29/2016 Family History Medical History Relation Comments Arthritis Father Glaucoma Father Mental Health Father ADD Vision loss Father Macular degenera tion Cancer Maternal Grandfather colon Vision loss Maternal Grandfather Arthritis Maternal Grandmother Arthritis Mother Depression Mother Cancer Paternal Aunt throat Early Hearing Loss Paternal Grandfather Heart Disease Paternal Grandfather Vision loss Paternal Grandfather macular deg eneration Cancer Paternal Grandmother ovarian Vision loss Paternal Grandmother Relation Status Comments Father Alive Maternal Grandfather Maternal Grandmother Mother Alive Paternal Aunt Paternal Grandfather Paternal Grandmother Social History Tobacco Use Types Packs/Day Years Used Date Smoking Tobacco: Never Smokeless Tobacco: Never Tobacco Cessation:Counseling Given: No Alcohol Use Standard Drinks/Week Comments Yes 8.3 [...] Sign Reading Time Taken Comments Blood Pressure 106/64 04/27/2024 10:21 AM HOME CARE COORDINATOR Pulse 68 04/27/2024 10:21 AM HOME CARE COORDINATOR Temperature 36.7 C (98 F) 04/27/2024 10:21 AM HOME CARE COORDINATOR Respiratory Rate 16 04/27/2024 10:21 AM HOME CARE COORDINATOR Oxygen Saturation 97% 04/27/2024 10:21 AM HOME CARE COORDINATOR Inhaled Oxygen Concentration - - Weight 56.7 kg (125 lb 1.6 oz) 04/27/2024 10:21 AM HOME CARE COORDINATOR Height 160 cm (5' 3) 04/27/2024 10:21 AM HOME CARE COORDINATOR Body Mass Index 22.16 04/27/2024 10:21 AM HOME CARE COORDINATOR Plan of Treatment Health Maintenance Due Date Last Done Comments Hepatitis C 11/16/2003 HPV Vaccines (1 - 3-dose SCD M series) 2012 COVID-19 Vaccine (3 - 2024-2 6 season) 2024 05/05/2020, 04/14/2020 Annual Physical 01/23/2026 01/23/2025, 02/10/2022 Hepatitis B Vaccines (1 of 3 - 19+ 3-dose series) 01/23/2026 Postponed from 10/24 (Awaiting Documentation) Influenza Adult (#1) 2026 01/23/2019, 02/02/2017 Postponed from 01/23/2025 (Patient Refused) DTaP, Tdap and Td Vaccines ( 3 - Td or Tdap) 08/26/2031 08/25/2021, 05/29/2016 PHQ-2 (Physician Ona) Completed 01/23/2025 Hepatitis A Vaccines Aged Out No long er eligible based on patient's age to complete this topic Meningococcal B Vaccine Aged Out No l onger eligible based on patient's age to complete this topic Meningococcal Vaccine Aged Out No jacinta arturo eligible based on patient's age to complete this topic Pneumococcal Vaccine: Pediatrics (0 to 5 Years) and At-Risk Patients (6 to 49 Years) Aged Out No longer eligible b ased on patient's age to complete this topic RSV Immunizations Under 20 Months Aged Out No longer eligible b ased on patient's age to complete this topic Procedures Procedure Name Priority Date/Time Associated Diagnosis Comments VITAMIN B-12 Routine 01/29/2025 12:00 AM CDT Recurrent canker sores COMPREHENSIVE METABOLIC PANEL Routine 01/29/2025 12:00 AM CDT General medical exam Recurrent major depressive disorder, in partial remission URIC ACID BLOOD Routine 01/29/2025 12:00 AM CDT General medical exam LIPID PANEL Routine 01/29/2025 12:00 AM CDT General medical exam CBC W/DIFF AUTOMATED Routine 01/29/2025 12:00 AM CDT General medical exam SVT (supraventricular tachycardia) (HHS/HCC) MG/PCCL UDS W CONF Routine 01/23/2025 9: 25 AM CDT Encounter for long-term (current) use of high-risk medication from Last 3 Months Results * VITAMIN B-12 (01/29/2025 12:00 AM CDT) 01/29/2025 Patricia Bio[employer]ee[employer]idya AP LABORATORY Final Resul t Performing Organization Address [facility] de Phone Number HS ONBASE * COMPREHENSIVE METABOLIC PANEL (01/29/2025 12:00 AM CDT) 01/29/2025 Patricia BioCeeLidya APBuzzDoes LABORATORY Final Resul t Performing Organization Address [facility] de Phone Number HS ONBASE * LIPID PANEL (01/29/2025 12:00 AM CDT) 01/29/2025 Patricia BioCeeLidya [employer] LABORATORY Final Resul t Performing Organization Address City/[facility] de Phone Number HS ONBASE * CBC W/DIFF AUTOMATED (01/29/2025 12:00 AM CDT) 01/29/2025 Patricia [employer] LABORATORY Final Resul t Performing Organization Address [facility] de Phone Number HS ONBASE * URIC ACID BLOOD (01/29/2025 12:00 AM CDT) 01/29/2025 Patricia H Lidya LAY LABORATORY Final Resul t [facility] ONBASE * (ABNORMAL) MG/PCCL UDS W CONF (01/23/2025 9:25 AM CDT) RESULT SUMMARY [facility] Comment: Prescribed Prescribed Not Prescribed Consistent Inconsistent Inconsistent Adderall(TM) PRESCRIBED DRUG 1 (U) Adderall(TM ) [facility] FENTANYL SCREEN (U) NEGATIVE <0.5 ng/mL [facility] 6 ACETYLMORPHINE (U) NEGATIVE <10 ng/mL [facility] DESMETHYLTRAMADOL (U) NEGATIVE <100 ng/mL [facility] TRAMADOL (U) NEGATIVE <100 ng/mL [facility] TRAMADOL COMMENTS [facility] Comment:See LDT Notes AMPHETAMINES PM NEGATIVE <500 ng/mL [facility] AMPHETAMINES PM MEDMATCH (U) INCONSISTEN T(A) [facility] BARBITURATES PM (U) NEGATIVE <300 ng/mL [facility] BENZODIAZEPINES PM (U) NEGATIVE <100 ng/mL [facility] COCAINE METABOLITE PM (U) NEGATIVE <150 ng/mL [facility] MARIJUANA METABOLITE PM (U) NEGATIVE <20 ng/mL [facility] METHADONE PM (U) NEGATIVE <100 ng/mL [facility] OPIATES PM (U) NEGATIVE <100 ng/mL [facility] OXYCODONE PM (U) NEGATIVE <100 ng/mL [facility] CREATININE RANDOM (U) 192.7 > or = 20.0 mg/dL [facility] pH PM (U) 6.6 4.5 - 9.0 [facility] OXIDANT NEGATIVE <200 mcg/mL [facility] NOTE [facility] Comment: This drug testing is for medical treatment only. Analysis was performed as non-forensic testing and these results should be used only by healthcare providers to render diagnosis or treatment, or to monitor progress of medical conditions. LDT Notes: Confirmation tests were developed and their analytical performance characteristics have been determined by [employer]. It has not been cleared or approved by the FDA. This assay has been validated pursuant to the CLIA regulations and is used for clinical purposes. medMATCH(R) enables providers to identify if drug use is consistent or inconsistent with a corresponding prescribed medication(s) list. Healthcare Providers needing Interpretation assistance, please contact us at [phone] ( ) M-F, 8am to 10pm EST URINE SPECIMEN / Unknown 01/23/2025 9:25 AM CDT 01/23/2025 10:58 PM CDT Narrative Resulting Agency Comment Performing Organization Information: Site ID: [place] Name: [facility] Address: [address] [place] [address] Director: Michael Diallo Site ID: [place] Name: [facility] Address: [address] [place] [address] Director: Allen Garay MD Patricia LAY URINE ORDERABLES Final Resu lt [employer] [facility] [place] [employer] [facility] [address] [facility] [place] [address] [employer] [place] [address] [place] [address] from Last 3 Months Insurance R UMR Care Teams Scaffold Builder Relationship Specialty Start Date End Date Patricia Bose APNP [address] [place] [id number] PCP - General NURSE PRACTITIONER 01/15/19 Bertrand Montejo MD [address] [address] Referring Physician VASCULAR SURGERY 01/30/19
== END 2025-03-27 13:05 | disposition home or self-care (01) ==
LOC: ANHCARD 13:07
PROVIDERS: PCP Registered Nurse; Visit Provider Anesthesiology
DX: I47.10 Supraventricular tachycardia, unspecified (principal)
CPT/HCPCS: 93005

== ENCOUNTER 2025-03-28 01:42 | Day surgery (SDC) | payer OTHER, SELFPAY ==
--- NOTE | 2025-03-27 11:33 | PC.NURSE ---
[facility] has started construction of its new state of the art ER which will open Spring 2026. With this, we anticipate parking may be a challenge for some our surgical patients and families. Parking spaces are limited but are available for all Surgical, obstetrics, and ER patients sharing this lot. If you arrive and find you are having a hard time finding a parking space, please note that we understand the challenges, please drive around the hospital and park near Hospital Entrance 1. When you enter this entrance, you can ask a volunteer to direct or take you back to the surgical waiting area to check in. We appreciate everyone?s understanding of these expected challenges while we build for your future. Report to the Outpatient Waiting Room, entrance under the green pavilion located off [facility], at time ___1000am____ on date __03/28/25 . Planned Procedure Time: __1200pm .? Time changes happen often and if your time is changed the preop area will call you the afternoon before. - You and your visitor will be asked to self-screen and do not enter if you have any COVID symptoms. Please call surgeon if you need to reschedule. - A mask is optional within the hospital at this time. Patients may have clear liquids (water, carbonated beverages, clear teas, apple juice) until 3 hours prior to surgery with a maximum of 20 ounces. - No food from midnight until time of surgery and no smoking, or chewing tobacco (or any form of nicotine). No chewing gum, candy or mints. (0900am) Take only the following medications with a SIP of water on the morning of surgery: Metoprolol and Prozac DO NOT STOP ANY OF YOUR OTHER PRESCRIPTION MEDICATIONS PRIOR TO SURGERY EXCEPT THE FOLLOWING Hold all vitamins and supplements for 3 days per anesthesiologist. Medications to discontinue per physician NONE Date to take last dose NONE Please no make-up, nail kazakh, hairspray, perfume, deodorant, or body powder the day of surgery.? No jewelry (including any body piercings) or valuables the day of surgery, leave them at home.? Please take a shower or bath the night before, or the morning of, surgery with an antibacterial soap.? Wear comfortable, loose fitting clothing.? - Jewelry must be removed prior to entering the operating room.? Rings and piercings that are not removed may be cut off. - The hospital will not accept responsibility for valuables.? - Please leave all valuables, including medications, at home the day of surgery. If you are going home after surgery, a licensed local truck driver must drive you home.? - NO public transportation without another adult if you receive anesthesia. - We recommend that an adult stay with you for 24 hours following discharge. - We also recommend that you do not drive, make important decision, drink alcoholic beverages, or take any drugs that were not prescribed by your health care provider for at least 24 hours after your discharge time. Follow any additional instructions given to you from your surgeon. Telephone instructions given to ___Patient and asked if any additional questions and then verbalized understanding. Patient advised to call surgeon office or pre surgery nurse liaison [phone] if any additional questions.
--- NOTE | 2025-03-27 12:54 | WPDANESEPP ---
Anes - Eval Pre Procedure Procedure: Operation Date: 03/28/25 12:00 Proposed Procedures p Left Peroneal Tendon Reconstruction - Benny Ritter MD Date/Time: 03/27/25 12:54 Pre Op Diagnosis: peroneal tendon tear Patient Data Age: 39 Gender: F Height: Weight: Allergies Allergy/AdvReac Type Severity Reaction Status Date / Time adhesive tape Allergy Intermediate Rash Verified 03/27/25 11:19 Home Medications ?Medication ?Instructions ?Recorded ?Confirmed ?Type dextroamphetamine-amphetamine 30 30 mg PO DAILY 05/03/24 03/27/25 History mg tablet (Adderall) fluoxetine 20 mg capsule (Prozac) 20 mg PO DAILY 05/03/24 03/27/25 History trazodone 50 mg tablet 25 mg PO QHS 05/03/24 03/27/25 History loratadine 10 mg tablet (Claritin) 10 mg PO DAILY PRN allergy symptoms 10/24/24 03/27/25 History metoprolol succinate 25 mg See Rx Instructions .Route 03/18/25 03/27/25 Rx tablet,extended release 24 hr .COMPLEX #45 tabs Results Review: All pre-operative results and documents have been reviewed as part of the pre-operative evaluation. [facility] Past Medical History Medical History Encounter for postoperative care Synovial cyst of popliteal space [Bragg], left knee Seasonal allergies Peroneal tendinitis of left lower leg Chondromalacia of left patellofemoral joint Acute medial meniscus tear of left knee Depression GERD (gastroesophageal reflux disease) PTSD (post-traumatic stress disorder) Anxiety Surgical History Surgical History History of breast surgery Family History Family History Other Arthritis Cancer Diabetes mellitus Heart disease Social History Social History Smoking status: Never smoker Second hand tobacco smoke exposure: No Alcohol intake: current Drinks per week: 2 Alcohol use details: 5-7 drinks per week Substance use: never Living arrangements: with family Occupation/Education: occupation 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
[2025-03-28] VITALS (8 sets, daily range): BP systolic 93–135; BP diastolic 65–84; PULSE 57–68; RESP 12–16; TEMP 36.1–36.9; O2SAT 99–100
--- OUTSIDE RECORDS SUMMARY | 2025-03-28 01:45 | XMS_ITS | Encounter Summary ---
Author Organization [facility] Address [facility] [place] [address] Care Team Providers Care Keysmith Name Role Phone Patricia Bose Primary Care Provider +1- [phone] Bertrand Montejo MD Unavailable Encounter Details Date Type Department Care Team (Late st Contact Info) Description 03/01/2023 Voz.iot Message Enc [facility] Family & Internal Medicine - [place] [address] [place] [address] Patricia Bose APNP [address] [place] [address] UTI Social History Tobacco Use [...] 03/01/2023 5:05 PM CST Meds sent over TMENT COUNSELOR * ROSANNE Lopez - 03/01/2023 5:01 PM CSTFrom: Marielena Dennison To: Patricia Bose Sent: 03/01/2023 8:27 AM TREATMENT COUNSELOR Subject: UTI Hey, I'm currently in [place] and I am getting a UTI. I have urgency, increased frequency and it hurts to urinate. I'm traveling home today and was wondering if you would be willing to call my in an antibiotic to orange picking supervisor tomorrow? And possibly diflucan....cause I always get a yeast infection when I take antibiotics. Thanks Reid johansen TMENT COUNSELOR documented in this encounter Plan of Treatment Not on file documented as of this encounter Visit Diagnoses Diagnosis Acute cystitis without hematuria- Primary Acute cystitis documented in this encounter Additional Health Concerns Assessment Noted Time PHQ-9 Depression Total Score: 8 02/11/20 22 1:21 PM CDT documented as of this encounter Care Teams Keysmith Relationship Specialty Start Date End Date Patricia Bose APNP [address] [place] [address] PCP - General NURSE PRACTITIONER 01/15/19 Bertrand Montejo MD [address] [address] Referring Physician VASCULAR SURGERY 01/30/19 documented as of this encounter
--- OUTSIDE RECORDS SUMMARY | 2025-03-28 01:45 | XMS_ITS | Encounter Summary ---
Author Organization [facility] Address [facility] [place] [address] Care Team Providers Care Epic Radiant Analyst Name Role Phone Patricia Bose Primary Care Provider +1- [phone] Bertrand Montejo MD Unavailable Encounter Details Date Type Department Care Team (Late st Contact Info) Description 02/12/2022 G-volutiont Message Enc [facility] Family & Internal Medicine - [place] [address] [place] [address] Patricia Bose APNP [address] [place] [address] [facility] Social History Tobacco Use Types Packs/Day Years [...] documented as of this encounter Care Teams Epic Radiant Analyst Relationship Specialty Start Date End Date Patricia Bose APNP [address] [place] [address] [id number] PCP - General NURSE PRACTITIONER 01/15/19 Bertrand Montejo MD [address] [address] Referring Physician VASCULAR SURGERY 01/30/19 documented as of this encounter
--- OUTSIDE RECORDS SUMMARY | 2025-03-28 01:45 | XMS_ITS | Encounter Summary ---
Author Organization [facility] Address [facility] [place] [address] Care Team Providers Care Cement Mason Apprentice Name Role Phone Patricia Bose Primary Care Provider +1- [phone] Bertrand Montejo MD Unavailable Encounter Details Date Type Department Care Team (Late st Contact Info) Description 05/20/2021 Geo Renewablest Message Enc [facility] Family & Internal Medicine [facility] [address] [place] [address] Patricia Bose APNP [address] [place] [address] Adderall refill Social History Tobacco [...] documented as of this encounter Care Teams Cement Mason Apprentice Relationship Specialty Start Date End Date Patricia Bose APNP [address] [place] [phone] PCP - General NURSE PRACTITIONER 01/15/19 Bertrand Montejo MD Three [address] [address] Referring Physician VASCULAR SURGERY 01/30/19 documented as of this encounter
--- OUTSIDE RECORDS SUMMARY | 2025-03-28 01:45 | XMS_ITS | Encounter Summary ---
Author Organization [facility] Address [facility] [place] [address] Care Team Providers Care Physiological Chemist Name Role Phone Patricia Bose Primary Care Provider +1- [phone] Bertrand Montejo MD Unavailable Encounter Details Date Type Department Care Team (Late st Contact Info) Description 06/01/2022 Gathert Message Enc [facility] Medical Group Family & Internal Medicine - [place] [address] [place] [address] Patricia Bose APNP [address] [place] [address] Yeast infection Social History Tobacco [...] documented as of this encounter Care Teams Physiological Chemist Relationship Specialty Start Date End Date Patricia Bose APNP [address] [place] [address] PCP - General NURSE PRACTITIONER 01/15/19 Bertrand Montejo MD [address] [address] Referring Physician VASCULAR SURGERY 01/30/19 documented as of this encounter
--- OUTSIDE RECORDS SUMMARY | 2025-03-28 01:45 | XMS_ITS | Clinical Summary ---
Author Organization [address] Address [address] [place] [phone] Care Team Providers Care Strategic Advisor Name Role Phone Miguel Ontiveros MD Primary Care Provider Allergies Active Allergy Reactions Criticality Noted Date [...] hr capsule Take 20 mg by mouth senior software manager before breakfast 1 Active ibuprofen (ADVIL,MOTRIN) 800 [...] (11/11/2020): Added automatically from request for surgery [id number] Assessment & Plan (01/26/2021 4:22 PM CDT): [...] on file Legal Sex Female 7:55 PM TORQUE TESTER Gender Identity Female 12/16/2020 10:09 AM CDT [...] on file Insurance [employer] Care Teams Strategic Advisor Relationship Specialty Start Date End Date Miguel Ontiveros MD [address] [place] [address] PCP - General Internal Medicine 12/09/20
--- OUTSIDE RECORDS SUMMARY | 2025-03-28 01:45 | XMS_ITS | Clinical Summary ---
Author Organization [facility] Address [address] [place] [address] Care Team Providers Care Process Lead Name Role Phone Lidya Patricia LAY Primary Care Provider +1- [phone] Bertrand Montejo MD Unavailable Allergies Active Allergy [...] Type Department Care Team Description 02/06/2025 Telephone [facility] Family & Internal Medicine [address] [address] Patricia Bose APNP 01/23/2025 9:00 AM CDT Office Visit [facility] Family & Internal Medicine [address] [phone] Patricia Bose APNP Physical 01/23/2025 Travel from [...] Comments Blood Pressure 106/64 04/27/2024 10:21 AM BASS MECHANISM MAKER Pulse 68 04/27/2024 10:21 AM BASS MECHANISM MAKER Temperature 36.7 C (98 F) 04/27/2024 10:21 AM BASS MECHANISM MAKER Respiratory Rate 16 04/27/2024 10:21 AM BASS MECHANISM MAKER Oxygen Saturation 97% 04/27/2024 10:21 AM BASS MECHANISM MAKER Inhaled Oxygen Concentration - - Weight 56.7 kg (125 lb 1.6 oz) 04/27/2024 10:21 AM BASS MECHANISM MAKER Height 160 cm (5' 3) 04/27/2024 10:21 AM BASS MECHANISM MAKER Body Mass Index 22.16 04/27/2024 10:21 AM BASS MECHANISM MAKER Plan of Treatment Health Maintenance Due Date [...] or Tdap) 08/26/2031 08/25/2021, 05/29/2016 PHQ-2 (Physician Social Circle) Completed 01/23/2025 Hepatitis A Vaccines Aged Out [...] B-12 (01/29/2025 12:00 AM CDT) 01/29/2025 Patricia CamSemiLidya AP LABORATORY Final Resul t Performing Organization Address [facility] de Phone Number HS ONBASE * COMPREHENSIVE METABOLIC PANEL (01/29/2025 12:00 AM CDT) 01/29/2025 Patricia Cam[employer]iLidya [employer] LABORATORY Final Resul t Performing Organization Address [facility] de Phone Number HS ONBASE * LIPID PANEL (01/29/2025 12:00 AM CDT) 01/29/2025 Patricia CamSemiLidya [employer] LABORATORY Final Resul t Performing Organization Address [place]/[facility] de Phone Number HS ONBASE * CBC W/DIFF AUTOMATED (01/29/2025 12:00 AM CDT) 01/29/2025 Patricia [employer] [place] [employer] LABORATORY Final Resul t Performing Organization Address [facility] de Phone Number HS ONBASE * URIC ACID BLOOD (01/29/2025 12:00 AM CDT) 01/29/2025 Patricia H Lidya LAY LABORATORY Final Resul t [facility] ONBASE * (ABNORMAL) MG/PCCL UDS W CONF (01/23/2025 9:25 AM CDT) RESULT SUMMARY [facility] Comment: Prescribed Prescribed Not Prescribed Consistent Inconsistent Inconsistent Adderall(TM) PRESCRIBED DRUG 1 (U) Adderall(TM ) [facility] FENTANYL SCREEN (U) NEGATIVE <0.5 ng/mL [facility] NOTE [facility] Comment: This drug testing is for medical treatment only. Analysis was performed as non-forensic testing and these results should be used only by healthcare providers to render diagnosis or treatment, or to monitor progress of medical conditions. LDT Notes: Confirmation tests were developed and their analytical performance characteristics have been determined by [employer]. It has not been cleared or approved by the FDA. This assay has been validated pursuant to the CLIA regulations and is used for clinical purposes. medMATCH(R) enables providers to identify if drug use is consistent or inconsistent with a corresponding prescribed medication(s) list. Healthcare Providers needing Interpretation assistance, please contact us at [phone] ( ) M-F, 8am to 10pm EST URINE SPECIMEN / Unknown 01/23/2025 9:25 AM CDT 01/23/2025 10:58 PM CDT Narrative Resulting Agency Comment Performing Organization Information: Site ID: [place] Name: [facility] Address: [address] [place] [address] Director: Michael Diallo Site ID: [place] Name: [facility] Address: [address] [place] [address] Director: Allen Garay MD Patricia LAY URINE ORDERABLES Final Resu lt [employer] [facility] [place] [employer] [facility] [address] [facility] [place] [address] [employer] [place] [address] [place] [address] from Last 3 Months Insurance R UMR Care Teams Process Lead Relationship Specialty Start Date End Date Patricia Bose APNP [address] [place] [address] PCP - General NURSE PRACTITIONER 01/15/19 Bertrand Montejo MD [address] [address] Referring Physician VASCULAR SURGERY 01/30/19
--- OUTSIDE RECORDS SUMMARY | 2025-03-28 01:46 | XMS_ITS | Encounter Summary ---
Author Organization [facility] Address [facility] [place] [address] Care Team Providers Care Gray Tender Name Role Phone Patricia Bose Primary Care Provider +1- [phone] Bertrand Montejo MD Unavailable Reason for Visit * Reason Onset Date Comments Medication 10/09/2021 Encounter Details Date Type Department Care Team (Late st Contact Info) Description 10/09/2021 [employer] Message Enc [facility] Medical Group Family & Internal Medicine [place] [id number] [place] [address] Patricia Bose APNP [address] [place] [address] Medication for Tracey Social History [...] documented as of this encounter Care Teams Gray Tender Relationship Specialty Start Date End Date Patricia Bose APNP [address] [place] [address] PCP - General NURSE PRACTITIONER 01/15/[address] [facility] [address] [place] [address] Referring Physician VASCULAR SURGERY 01/30/19 documented as of this encounter
--- OUTSIDE RECORDS SUMMARY | 2025-03-28 01:46 | XMS_ITS | Encounter Summary ---
Author Organization [facility] Address [facility] [place] [address] Care Team Providers Care Superintendent Car Construction Name Role Phone Patricia Bose Primary Care Provider +1- [phone] Bertrand Montejo MD Unavailable Encounter Details Date Type Department Care Team (Late st Contact Info) Description 07/25/2021 [employer] Message Enc [facility] Medical Group Family & Internal Medicine [facility] [address] [place] [address] Patricia Bose APNP [address] [place] [address] Panic Attacks Social History Tobacco [...] documented as of this encounter Care Teams Superintendent Car Construction Relationship Specialty Start Date End Date Patricia Bose APNP [address] [place] [phone] PCP - General NURSE PRACTITIONER 01/15/19 Bertrand Montejo MD [address] [address] Referring Physician VASCULAR SURGERY 01/30/19 documented as of this encounter
--- OUTSIDE RECORDS SUMMARY | 2025-03-28 01:46 | XMS_ITS | Encounter Summary ---
Author Organization [facility] Address [facility] [place] [address] Care Team Providers Care Flight Service Specialist Name Role Phone Patricia Bose Primary Care Provider +1- [phone] Bertrand Montejo MD Unavailable Encounter Details Date Type Department Care Team (Late st Contact Info) Description 05/29/2021 PATHSENSORSt Message Enc [facility] Medical Group Family & Internal Medicine [facility] [address] [place] [address] Patricia Bose APNP [address] [place] [address] Valcyclavir Social History Tobacco Use [...] documented as of this encounter Care Teams Flight Service Specialist Relationship Specialty Start Date End Date Patricia Bose APNP [address] [place] [address] PCP - General NURSE PRACTITIONER 01/15/19 Bertrand Montejo MD [address] [address] Referring Physician VASCULAR SURGERY 01/30/19 documented as of this encounter
--- OUTSIDE RECORDS SUMMARY | 2025-03-28 01:46 | XMS_ITS | Encounter Summary ---
Author Organization [facility] Address [facility] [place] [address] Care Team Providers Care Kiln Remover Name Role Phone Patricia Bose Primary Care Provider +1- [phone] Bertrand Montejo MD Unavailable Encounter Details Date Type Department Care Team (Late st Contact Info) Description 02/06/2025 Telephone [facility] Medical Group Family & Internal Medicine [facility] [address] [place] [address] Patricia Bose APNP [address] [place] [address] Social History Tobacco Use Types [...] Total Score: 3 04/27/19 25 2:14 PM BACK GRAY CLOTH WASHER documented as of this encounter Care Teams Kiln Remover Relationship Specialty Start Date End Date Patricia Bose APNP [address] [place] [address] PCP - General NURSE PRACTITIONER 01/15/19 Bertrand Montejo MD [address] [address] Referring Physician VASCULAR SURGERY 01/30/19 documented as of this encounter
--- OUTSIDE RECORDS SUMMARY | 2025-03-28 01:46 | XMS_ITS | Encounter Summary ---
Author Organization [facility] Address [facility] [place] [address] Care Team Providers Care Journalism Internship Name Role Phone Ptaricia Bose Primary Care Provider +1 [phone] Bertrand Montejo MD Unavailable Reason for Visit * Reason Onset Date Comments Medication 01/29/2022 Encounter Details Date Type Department Care Team (Late st Contact Info) Description 01/29/2022 [email or web address] Message Enc [facility] Medical Group Family & Internal Medicine [phone] [place] [address] Patricia Bose APNP [address] [place] [address] Shaquille pettit Social History Tobacco [...] documented as of this encounter Care Teams Journalism Internship Relationship Specialty Start Date End Date Patricia Bose APNP [address] [place] [address] PCP - General NURSE PRACTITIONER 01/15/19 Bertrand Montejo MD [address] [address] Referring Physician VASCULAR SURGERY 01/30/19 documented as of this encounter
[2025-03-28] MEDS: ACETAMINOPHEN 500 MG TABLET 1000 MG PO (10:35)
[2025-03-28] MEDS: KETOROLAC 15 MG/ML VIAL (*BKC) IV PUSH (10:35)
[2025-03-28] MEDS: LACTATED RINGERS 1,000 ML 30 ML IV CONT ×2 (10:35→13:29)
--- NOTE | 2025-03-28 11:09 | WPDHPUPDATE1 ---
History and Physical Update Update Date/Time: 03/28/25 11:09 History and Physical has been reviewed, including an updated exam of the patient. There are NO changes in the patient's condition. Risks, benefits, and alternatives have been discussed and questions answered. Patient agrees to proceed with procedure.
--- NOTE | 2025-03-28 11:43 | WPDANESEPPF ---
Anes - Initial Pre Proc Eval Procedure: Operation Date: 03/28/25 12:00 Proposed Procedures p Left Peroneal Tendon Reconstruction - Benny Ritter MD Date/Time: 03/28/25 11:43 Surgeon: Benny Ritter MD Pre Op Diagnosis: peroneal tendon tear Patient Data Age: 39 Gender: F Height: Weight: 60.95 kg Last Vital Signs Temp 36.9 C 03/28/25 10:35 Pulse 64 03/28/25 10:35 Resp 16 03/28/25 10:35 BP 113/70 03/28/25 10:35 Pulse Ox 100 03/28/25 10:35 O2 Del Method Room Air 03/28/25 10:35 Allergies Allergy/AdvReac Type Severity Reaction Status Date / Time adhesive tape Allergy Intermediate Rash Verified 03/28/25 10:48 Home Medications ?Medication ?Instructions ?Recorded ?Confirmed ?Type dextroamphetamine-amphetamine 30 30 mg PO DAILY 05/03/24 03/28/25 History mg tablet (Adderall) fluoxetine 20 mg capsule (Prozac) 20 mg PO DAILY 05/03/24 03/28/25 History trazodone 50 mg tablet 25 mg PO QHS 05/03/24 03/27/25 History loratadine 10 mg tablet (Claritin) 10 mg PO DAILY PRN allergy symptoms 10/24/24 03/27/25 History metoprolol succinate 25 mg See Rx Instructions .Route 03/18/25 03/28/25 Rx tablet,extended release 24 hr .COMPLEX #45 tabs Patient hx anesthesia problems: none Family hx anesthesia problems: none Results Review: All pre-operative results and documents have been reviewed as part of the pre-operative evaluation. COUNTS INCLUDE 234 BEDS AT THE [facility] Past Medical History Medical History Encounter for postoperative care Synovial cyst of popliteal space [Bragg], left knee Seasonal allergies Peroneal tendinitis of left lower leg Chondromalacia of left patellofemoral joint Acute medial meniscus tear of left knee Depression GERD (gastroesophageal reflux disease) PTSD (post-traumatic stress disorder) Anxiety Surgical History Surgical History History of breast surgery Family History Family History Other Arthritis Cancer Diabetes mellitus Heart disease Social History Social History Smoking status: Never smoker Second hand tobacco smoke exposure: No Alcohol intake: current Drinks per week: 2 Alcohol use details: 5-7 drinks per week Substance use: never Living arrangements: with family Occupation/Education: occupation 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 Informed Consent: The patient's anesthetic plan and its attendant risks and benefits were discussed with the patient/family/POA. Questions were solicited and answers provided to the satisfaction of the patient/family/POA.
--- NOTE | 2025-03-28 11:48 | P.OP_ITS ---
Procedure Note - Detailed Date of Procedure 03/28/25 Pre-op Diagnosis Left foot peroneal tendon tear Post-op Diagnosis Same Procedure Performed Left foot peroneal tendon reconstruction Surgeon Benny Ritter MD Process Checker 1st inventory control assistant Anesthesia General Indications 39-year-old with left distal peroneal tendonitis and tendon tear. Has failed conservative treatment with injections and physical therapy. Presents for operative treatment. Findings Split tear of the distal peroneal Brevis tendon with surrounding synovitis. Description of Procedure Patient identified in the preoperative holding. Informed consent given. Operative extremity marked. Patient received intravenous antibiotics. Patient brought to the operating room where underwent general anesthetic by anesthesia team. Positioned supine on operating room table. Time-out performed confirming the patient, site of the surgery and the plan. left lower extremity prepped and draped in the usual sterile surgical fashion using a ChloraPrep skin solution. Foot and ankle exsanguinated and calf tourniquet inflated 225 mmHg. Longitudinal incision made over the lateral border of the left foot along the peroneal brevis path and the base of the 5th metatarsal. Hemostasis controlled electrocautery. Sensory elements were identified and protected. Fascia incised in line with skin incision which allowed visualization of the peroneus brevis tendon and insertion on the 5th metatarsal. Split tear with synovitis noted. This was then detached from the base of the 5th metatarsal with a 15 blade knife. Based metatarsal was then debrided with a rongeur. Thorough irrigation. The surrounding synovitis was removed with rongeur and sharp dissection. Peroneal tendon then reconstructed. 2 Fibertak anchors (1.8mm) placed in the base of the 5th metatarsal and passed through the peroneal tendon which was repaired Back to the metatarsal and noted to be stable. Wound irrigated with saline. Fascia closed with 0 Vicryl interrupted suture. Subcutaneous tissue. With 3 0 Monocryl interrupted suture and skin repaired with nylon 4 0 interrupted suture. Tourniquet released. Sterile dressing applied. The patient was then woken from anesthesia, extubated and taken to the recovery room in stable condition. All sponge, needle, instrument counts were correct at the end of the case. Implants Arthrex 1.8 mm fiber tack anchor x2 Estimated Blood Loss 5 Tourniquet Time Total Tourniquet Time: 65min Drains No Packing No Pathology None sent Complications None Condition Stable Disposition PACU [facility] Billing Surgery - Charge Forward: Surgery Billing ([id number])
[2025-03-28] MEDS: BUPivacaine HCL 0.5% 10 ML AMP 30 ML INFILTRATE (11:53)
[2025-03-28] MEDS: SCOPOLAMINE 1 MG PATCH 1 PATCH TRANSDERM (11:53)
[2025-03-28] MEDS: ceFAZolin 2 GM in SODIUM CHLORIDE 0.9% IV 50 ML 100 ML IVPB (11:53)
== END 2025-03-28 15:03 | disposition home or self-care (01) ==
PROVIDERS: PCP Registered Nurse; Visit Provider Orthopaedic Surgery
PROC: (CPT 28200; principal; 2025-03-28 12:00)
DX: S86.312A Strain of muscle(s) and tendon(s) of peroneal muscle group at lower leg level, left leg, initial encounter (principal); M76.72 Peroneal tendinitis, left leg; M65.872 Other synovitis and tenosynovitis, left ankle and foot; X58.XXXA Exposure to other specified factors, initial encounter
CPT/HCPCS: 28200; J0690; A9270; C1713; J1100; J1596; J1885; J2003; J2250; J2371; J2405; J2704; J7120

== ENCOUNTER 2025-04-23 10:25 | Outpatient (CLI) | payer OTHER, SELFPAY ==
--- OUTSIDE RECORDS SUMMARY | 2025-04-23 10:58 | XMS_ITS | Encounter Summary ---
Author Organization [facility] Address [facility] [place] [address] Care Team Providers Care It Systems Administrator Name Role Phone Patricia Bose Primary Care Provider +1- [phone] Bertrand Montejo MD Unavailable Encounter Details Date Type Department Care Team (Late st Contact Info) Description 03/01/2023 FANCRUt Message Enc [facility] Medical Group Family & Internal Medicine - [place] [address] [place] [address] Patricia Bose APNP [address] [place] [address] UTI Social History Tobacco Use [...] 03/01/2023 5:05 PM CST Meds sent over LAGE CLERK * ROSANNE Lopez - 03/01/2023 5:01 PM CSTFrom: Marielena Dennison To: Patricia Bose Sent: 03/01/2023 8:27 AM WHEELAGE CLERK Subject: UTI Hey, I'm currently in [place] and I am getting a UTI. I have urgency, increased frequency and it hurts to urinate. 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 And possibly diflucan....cause I always get a yeast infection when I take antibiotics. Thanks Reid johansen LAGE CLERK documented in this encounter Plan of Treatment Not on file documented as of this encounter Visit Diagnoses Diagnosis Acute cystitis without hematuria- Primary Acute cystitis documented in this encounter Additional Health Concerns Assessment Noted Time PHQ-9 Depression Total Score: 8 02/11/20 22 1:21 PM CDT documented as of this encounter Care Teams It Systems Administrator Relationship Specialty Start Date End Date Patricia Bose APNP [address] [place] [address] PCP - General NURSE PRACTITIONER 01/15/19 Bertrand Montejo MD [address] [address] Referring Physician VASCULAR SURGERY 01/30/19 documented as of this encounter
--- OUTSIDE RECORDS SUMMARY | 2025-04-23 10:58 | XMS_ITS | Encounter Summary ---
Author Organization [facility] Address [facility] [place] [address] Care Team Providers Care Office Services Clerk Name Role Phone Patricia Bose Primary Care Provider +1 [phone] Bertrand Montejo MD Unavailable Reason for Visit * Reason Onset Date Comments Medication 10/09/2021 Encounter Details Date Type Department Care Team (Late st Contact Info) Description 10/09/2021 StrikeIront Message Enc [facility] Medical Group Family & Internal Medicine [phone] [place] [address] Patricia Bose APNP [address] [place] [address] Medication for Tracey Social History [...] documented as of this encounter Care Teams Office Services Clerk Relationship Specialty Start Date End Date Patricia Bose APNP [address] [place] [address] PCP - General NURSE PRACTITIONER 01/15/19 Bertrand Montejo MD [facility] [address] [place] [address] Referring Physician VASCULAR SURGERY 01/30/19 documented as of this encounter
--- OUTSIDE RECORDS SUMMARY | 2025-04-23 10:58 | XMS_ITS | Encounter Summary ---
Author Organization [facility] Address [facility] [place] [address] Care Team Providers Care Medical Office Asst Name Role Phone Patricia Bose Primary Care Provider +1- [phone] Bertrand Montejo MD Unavailable Encounter Details Date Type Department Care Team (Late st Contact Info) Description 02/12/2022 [employer] Servic[employer] Message Enc [facility] Medical Group Family & Internal Medicine - [place] [address] [place] [address] Patricia Bose APNP [address] [place] [address] [facility] Social History Tobacco Use Types Packs/Day [...] documented as of this encounter Care Teams Medical Office Asst Relationship Specialty Start Date End Date Patricia Bose APNP [address] [place] [address] [id number] PCP - General NURSE PRACTITIONER 01/15/19 Bertrand Montejo MD [address] [address] Referring Physician VASCULAR SURGERY 01/30/19 documented as of this encounter
--- OUTSIDE RECORDS SUMMARY | 2025-04-23 10:58 | XMS_ITS | Encounter Summary ---
Author Organization [facility] Address [facility] [place] [address] Care Team Providers Care System Administration Manager Name Role Phone Patricia Bose Primary Care Provider +1- [phone] Bertrand Montejo MD Unavailable Encounter Details Date Type Department Care Team (Late st Contact Info) Description 07/25/2021 Run The Campaignt Message Enc [facility] Medical Group Family & Internal Medicine [facility] [address] [place] [address] Patricia Bose APNP [address] [place] [address] Panic Attacks Social History Tobacco [...] documented as of this encounter Care Teams System Administration Manager Relationship Specialty Start Date End Date Patricia Bose APNP [address] [place] [address] [phone] PCP - General NURSE PRACTITIONER 01/15/19 Bertrand Montejo MD [address] [address] Referring Physician VASCULAR SURGERY 01/30/19 documented as of this encounter
--- OUTSIDE RECORDS SUMMARY | 2025-04-23 10:58 | XMS_ITS | Clinical Summary ---
Author Organization [address] Address [address] [place] [phone] Care Team Providers Care City Secretary Name Role Phone Miguel Ontiveros MD Primary Care Provider [phone] Allergies Active Allergy Reactions Criticality Noted Date [...] hr capsule Take 20 mg by mouth mill worker before breakfast 1 Active ibuprofen (ADVIL,MOTRIN) 800 [...] (11/11/2020): Added automatically from request for surgery [id number] Assessment & Plan (01/26/2021 4:22 PM CDT): [...] on file Legal Sex Female 7:55 PM RETREAD MOLD OPERATOR Gender Identity Female 12/16/2020 10:09 AM CDT [...] on file Insurance CORE CORE Care Teams City Secretary Relationship Specialty Start Date End Date Miguel Ontiveros MD [address] [place] [address] PCP - General Internal Medicine 12/09/20
--- OUTSIDE RECORDS SUMMARY | 2025-04-23 10:58 | XMS_ITS | Encounter Summary ---
Author Organization [facility] Address [facility] [place] [address] Care Team Providers Care Bleaching Machine Operator Name Role Phone Patricia Bose Primary Care Provider +1- [phone] Bertrand Montejo MD Unavailable Encounter Details Date Type Department Care Team (Late st Contact Info) Description 05/20/2021 CR2t Message Enc [facility] Medical Group Family & Internal Medicine [facility] [address] [place] [address] Patricia Bose APNP [address] [place] [address] Adderall refill Social History Tobacco [...] documented as of this encounter Care Teams Bleaching Machine Operator Relationship Specialty Start Date End Date Patricia Bose APNP [address] [place] [address] [phone] PCP - General NURSE PRACTITIONER 01/15/19 Bertrand Montejo MD [address] [address] Referring Physician VASCULAR SURGERY 01/30/19 documented as of this encounter
--- OUTSIDE RECORDS SUMMARY | 2025-04-23 10:58 | XMS_ITS | Encounter Summary ---
Author Organization [facility] Address [facility] [place] [address] Care Team Providers Care Mold Maker Plastic Molds Name Role Phone Patricia Bose Primary Care Provider +1 [phone] Bertrand Montejo MD Unavailable Reason for Visit * Reason Onset Date Comments Medication 01/29/2022 Encounter Details Date Type Department Care Team (Late st Contact Info) Description 01/29/2022 Broadchoice Message Enc [facility] Medical Group Family & Internal Medicine [place] [id number] [place] [address] Patricia Bose APNP [address] [place] [address] Shaquille pettit Social History Tobacco [...] documented as of this encounter Care Teams Mold Maker Plastic Molds Relationship Specialty Start Date End Date Patricia Bose APNP [address] [place] [address] PCP - General NURSE PRACTITIONER 01/15/19 Bertrand Montejo MD [address] [address] Referring Physician VASCULAR SURGERY 01/30/19 documented as of this encounter
--- OUTSIDE RECORDS SUMMARY | 2025-04-23 10:58 | XMS_ITS | Clinical Summary ---
Author Organization [facility] [employer] [facility] Address [address] [place] [address] Care Team Providers Care Radiator Core Tester Name Role Phone Unavailable Primary Care Provider Unavailabl e Social History Tobacco Use Types Packs/Day Years Used Date Smoking Tobacco: Never Assessed Comments Unknown Sex and Gender Information Value Date Recorded Sex Assigned at Not on file Legal Sex Female 1:16 PM EDT Gender Identity Not on file Sexual Orientation Not on file Plan of Treatment Not on file Medical Devices Not on file
--- OUTSIDE RECORDS SUMMARY | 2025-04-23 10:58 | XMS_ITS | Encounter Summary ---
Author Organization [facility] Address [facility]6 [place] [address] Care Team Providers Care Manager Metal Name Role Phone Patricia Bose Primary Care Provider [phone] [phone] Bertrand Montejo MD Unavailable Encounter Details Date Type Department Care Team (Late st Contact Info) Description 12/30/2023 Sharecare Message Enc [facility] Medical Group Family & Internal Medicine [address] [address] [place] Provider Xray results Social History [...] as of this encounter Care Teams Manager Metal Relationship Specialty Start Date End Date Patricia Bose APNP [address] [place] [address] PCP - General NURSE PRACTITIONER 01/15/19 Bertrand Montejo MD [address] [address] Referring Physician VASCULAR SURGERY 01/30/19 documented as of this encounter
--- OUTSIDE RECORDS SUMMARY | 2025-04-23 10:58 | XMS_ITS | Encounter Summary ---
Author Organization [facility] Address Counts include 234 beds at the [facility] [place] [address] Care Team Providers Care Senior Software Quality Analyst Name Role Phone Patricia Bose Primary Care Provider [phone]- [phone] Bertrand Montejo MD Unavailable Encounter Details Date Type Department Care Team (Late st Contact Info) Description 06/01/2022 Certust Message Enc [facility] Medical Group Family & Internal Medicine - [place] [address] [place] [address] Patricia Bose APNP [address] [place] [address] Yeast infection Social History Tobacco [...] documented as of this encounter Care Teams Senior Software Quality Analyst Relationship Specialty Start Date End Date Patricia Bose APNP [address] [place] [address] PCP - General NURSE PRACTITIONER 01/15/19 Bertrand Montejo MD [address] [address] Referring Physician VASCULAR SURGERY 01/30/19 documented as of this encounter
--- OUTSIDE RECORDS SUMMARY | 2025-04-23 10:58 | XMS_ITS | Encounter Summary ---
Author Organization [facility] Address [facility] [place] [address] Care Team Providers Care Electric Motor Winder Name Role Phone Patricia Bose Primary Care Provider [phone]- [phone] Bertrand Montejo MD Unavailable Encounter Details Date Type Department Care Team (Late st Contact Info) Description 05/29/2021 Peas-Corpt Message Enc [facility] Medical Group Family & Internal Medicine [facility] [address] [place] [address] Patricia Bose APNP [address] [place] [address] Valcyclavir Social History Tobacco Use [...] documented as of this encounter Care Teams Electric Motor Winder Relationship Specialty Start Date End Date Patricia Bose APNP [address] [place] [address] PCP - General NURSE PRACTITIONER 01/15/19 Bertrand Montejo MD [address] [address] Referring Physician VASCULAR SURGERY 01/30/19 documented as of this encounter
--- OUTSIDE RECORDS SUMMARY | 2025-04-23 10:58 | XMS_ITS | Clinical Summary ---
Author Organization [facility] Address [address] [place] [address] Care Team Providers Care Endoscopy Support Specialist Name Role Phone Lidya Patricia LAY Primary Care Provider [phone] Bertrand Montejo MD Unavailable Allergies Active Allergy Reactions Criticality Noted Date Comments Tape Rash Medium 01/26/2021 Medications valACYclovir (VALTREX) 1 g tabletIndications :Cold sore Take 2 tabs twice daily for one day. 4 tablet 2 08/03/19 23 Active Additional Information Patient not taking.Reported on 01/23/2025 loratadine (CLARITIN) 10 MG tablet 01/02/20 24 Active lidocaine viscous (XYLOCAINE) 2 % solution MIX WITH EQUAL PARTS MAALOX AND BENDADRYL THEN SWISH AND SPIT EVERY HOUR NEEDED DIRECTED 04/16/20 24 Active metoprolol succinate ER (TOPROL-XL) 25 MG 24 hr tablet Take 0.5 tablets (12.5 mg total) by mouth daily. 01/10/20 25 Active traZODone (DESYREL) 50 MG tabletIndications :Primary insomnia Take one half tablet once nightly as needed for insomnia. 90 tablet 3 01/24/20 25 Active triamcinolone (KENALOG) 0.1 % pasteIndications: Canker sores oral Apply to canker sores twice daily for 2 weeks 5 g 1 03/08/20 25 Active FLUoxetine (PROZAC) 20 MG capsuleIndication s:Anxiety,Recurre nt major depressive disorder, in partial remission TAKE 1 CAPSULE BY MOUTH DAILY 90 capsule 3 03/19/20 25 Active amphetamine-dextr oamphetamine XR (ADDERALL XR) 30 mg 24 hr capsuleIndication s:Attention deficit hyperactivity disorder (ADHD), combined type Take 1 capsule (30 mg total) by mouth every morning. Please call office to schedule your follow-up appointment to ensure no interruption in refills. 30 capsule 04/22/20 25 Active amphetamine-dextr oamphetamine XR (ADDERALL XR) 30 mg 24 hr capsuleIndication s:Attention deficit hyperactivity disorder (ADHD), combined type Take 1 capsule (30 mg total) by mouth every morning. Please call office to schedule your follow-up appointment to ensure no interruption in refills. 30 capsule 03/08/20 25 025 Discontin ued(Reord er) amphetamine-dextr oamphetamine XR (ADDERALL XR) 30 mg 24 hr capsuleIndication s:Attention deficit hyperactivity disorder (ADHD), combined type Take 1 capsule (30 mg total) by mouth every morning. Please call office to schedule your follow-up appointment to ensure no interruption in refills. 30 capsule 04/22/20 25 025 Discontin ued(Alter annabelle therapy) Active Problems Problem Noted Date Diagnosed Date [...] Encounters Date Type Department Care Team Description 03/28/2025 Scan HEALTH INFO [facility] Scanned, Doc [facility] Procedure (SCAN) 02/06/2025 Telephone [facility] Family & Internal Medicine [address] [phone] Patricia Bose APNP Lab Order 01/23/2025 9:00 AM CDT Office Visit [facility] Family & Internal Medicine [address] [phone] Patricia Bose APNP Physical 01/23/2025 Travel from [...] Comments Blood Pressure 106/64 04/27/2024 10:21 AM ROADABILITY MACHINE OPERATOR Pulse 68 04/27/2024 10:21 AM ROADABILITY MACHINE OPERATOR Temperature 36.7 C (98 F) 04/27/2024 10:21 AM ROADABILITY MACHINE OPERATOR Respiratory Rate 16 04/27/2024 10:21 AM ROADABILITY MACHINE OPERATOR Oxygen Saturation 97% 04/27/2024 10:21 AM ROADABILITY MACHINE OPERATOR Inhaled Oxygen Concentration - - Weight 56.7 kg (125 lb 1.6 oz) 04/27/2024 10:21 AM ROADABILITY MACHINE OPERATOR Height 160 cm (5' 3) 04/27/2024 10:21 AM ROADABILITY MACHINE OPERATOR Body Mass Index 22.16 04/27/2024 10:21 AM ROADABILITY MACHINE OPERATOR Plan of Treatment Health Maintenance Due Date [...] or Tdap) 08/26/2031 08/25/2021, 05/29/2016 PHQ-2 (Physician [place]) Completed 01/23/2025 Hepatitis A Vaccines Aged Out [...] Procedure Name Priority Date/Time Associated Diagnosis Comments PROCEDURE GENERIC (SCAN ORDER) 03/28/2025 VITAMIN B-12 Routine 01/29/2025 12:00 AM CDT [...] medication from Last 3 Months Results * PROCEDURE GENERIC (SCAN ORDER) (03/28/2025) 03/28/2025 [employer] [facility] Scanned SCANNING Final Resu lt * VITAMIN B-12 (01/29/2025 12:00 AM CDT) 01/29/2025 Patricia Brain Parade Lidya LAY LABORATORY Final Resul t Performing Organization Address City/[facility]/ZIP Co de Phone Number [facility] * COMPREHENSIVE METABOLIC PANEL (01/29/2025 12:00 AM CDT) 01/29/2025 Patricia Brain Parade Lidya [facility] LABOR[facility] Final Resul t [facility] * LIPID PANEL (01/29/2025 12:00 AM CDT) 01/29/2025 [employer] [facility] Final Resul t [facility] * CBC W/DIFF AUTOMATED (01/29/2025 12:00 AM CDT) 01/29/2025 us Patricia Daibuzz LAY LABORATORY Final Resul t [facility] * URIC ACID BLOOD (01/29/2025 12:00 AM CDT) 01/29/2025 Patricia Bose [facility] Final Resul t Performing Organization Address City/[facility]/ZIP Co de Phone Number [facility] * (ABNORMAL) MG/PCCL UDS W CONF (01/23/2025 9:25 AM CDT) RESULT SUMMARY [employer] [facility] Comment: Prescribed Prescribed Not Prescribed Consistent Inconsistent Inconsistent Adderall(TM) PRESCRIBED DRUG 1 (U) Adderall(TM ) [facility] [place] SCREEN (U) NEGATIVE <0.5 ng/mL [...] DIAGNOST[facility] OXIDANT NEGATIVE <200 mcg/mL [facility] [place] [facility] NOTE [employer] [facility] Comment: This drug testing is for medical treatment only. Analysis was performed as non-forensic testing and these results should be used only by healthcare providers to render diagnosis or treatment, or to monitor progress of medical conditions. LDT Notes: Confirmation tests were developed and their analytical performance characteristics have been determined by [employer]. It has not been cleared or approved by the FDA. This assay has been validated pursuant to the CLIA regulations and is used for clinical purposes. medMATCH(R) enables providers to identify if drug use is consistent or inconsistent with a corresponding prescribed medication(s) list. Healthcare Providers needing Interpretation assistance, please contact us at [phone] ([phone]) M-F, 8am to 10pm EST URINE SPECIMEN / Unknown 01/23/2025 9:25 AM CDT 01/23/2025 10:58 PM CDT Narrative Resulting Agency Comment Performing Organization Information: Site ID: [id number] [facility] Address: [address] [place] [address] Director: Michael Diallo Site ID: [id number] Name: [facility] Address: [address] [place] [address] Director: Allen Garay MD Patricia LAY URINE ORDERABLES Final Resu [facility] Pamela WIGGINS [employer] [facility] [address] [place], [place] [address] [place] [address] [place] [address] from Last 3 Months Insurance UMR UMR Care Teams Endoscopy Support Specialist Relationship Specialty Start Date End Date Patricia Bose APNP [address] [place] [id number] PCP - General NURSE PRACTITIONER 01/15/19 Bertrand Montejo MD [facility] [address] [place] [address] Referring Physician VASCULAR SURGERY 01/30/19
[2025-04-23 11:41] LABS: Alanine Aminotransferase 19 U/L (6-35); Albumin Level 4.3 g/dL (3.5-5.1); Alkaline Phosphatase 62 U/L (38-126); Anion Gap 6 mmol/L (4-12); Aspartate Amino Transferase 34 U/L (14-36); Bilirubin,Total 1.9 mg/dL (0.2-1.3); Blood Urea Nitrogen 9 mg/dL (7-17); Calcium 9.2 mg/dL (8.4-10.2); Carbon Dioxide 28 mmol/L (22-30); Chloride 103 mmol/L (98-107); Estimated Glomerular Filt Rate > 60; Glucose 104 mg/dL (65-110); Potassium 3.7 mmol/L (3.4-5.0); Sodium 137 mmol/L (137-145); Total Protein 7.3 g/dL (6.3-8.2)
== END 2025-04-23 10:26 | disposition home or self-care (01) ==
LOC: ANHLAB 10:27
PROVIDERS: PCP Registered Nurse; Visit Provider Registered Nurse
DX: E87.1 Hypo-osmolality and hyponatremia (principal); R17 Unspecified jaundice
CPT/HCPCS: 36415; 80053